=== PATIENT | male | born 1945 | race African-American/Black ===

== ENCOUNTER 2018-05-01 22:12 | Emergency (ER) | payer MEDICARE, OTHER ==
[2018-05-02] MEDS ORDERED: IOHEXOL 240 MG/ML 50ML VIAL. IJ
== END 2018-05-02 02:51 | disposition home or self-care (01) ==
LOC: ER 22:12
DX: K94.23 Gastrostomy malfunction (principal); Z88.8 Allergy status to other drugs, medicaments and biological substances
CPT/HCPCS: 49450; 74018; 99284

== ENCOUNTER 2018-11-29 10:45 | Inpatient (IN) | payer MEDICARE, OTHER ==
[2018-11-29] VITALS (7 sets, daily range): BP systolic 139–194; BP diastolic 38–114
[~2018-11-29] VITALS: Ht 172.7 cm; Wt 79.1 kg
[~2018-11-29 10:45] MED LIST: ACET500L17 PO; ACIDOPHILUS PROB1 MG PO; ALBU1.25 NEB; ATEN25TA PO; BIOTENE ORALBAL42 GM MM; CARB1DRO OP; CHOL100016 PO; EMOLLIENT CREA454 GM TP; GABA250S6 PO; HC/M25OI TP; LAMO200T2 PO; LEVE100S8 PO; LOPE1LIQ7 PO; LORA0.5T PO; LORA10TA68 PO; MAG355OR12 PO; MAGN30OR PO; NAPH1POW2 PO; NITR1PAT73 TD; NYST15CR TP; NYST1POW5 MC; PANT40TA77 PO; PRAV10TA2 PO; SIME100L MC
--- NOTE | 2018-11-29 14:00 | NUR ---
PATIENT ARRIVED ON THE UNIT PER DONY, ASSISTED TON BED PER 3 PERSON ASSIST, PATIENT NON VERBAL BUT RESPONDS TO TACTILE STIMULI, COMFORT MEASURES GIVEN, HOB OF BED ELEVATED ADMISSION ASSESSMENT COMPLETED, WILL REVIEW ORDERS.
--- NOTE | 2018-11-29 14:08 | PDOC2 ---
GI CONSULT Reason For Consult: PEG tube placement HPI: HPI: 73 y/o male w/ is non-verbal w/ h/o stroke. Per notes, from [facility] deferred to [facility]. ER documentation indicates PEG tube (note says 18Fr) was dislodged around 10:00 p.m. Apparently no PEG tubes available at [facility] so sent here. Can't see that any labs/imaging done. Records indicate h/o "esophagitis and gastritis." Can also see PEG replaced ( for old/broken tube) in our ER in 04/2018. Med list includes pantoprazole. PMH: PMH: per chart - HTN, HLD, COPD, CVA, epilepsy, GERD, OA, chronic pain, rout, RA, allergic rhinitis, CKD, UTI, BPH, DM, osteoporosis DM, seborrheic dermatitis PEG placement FH: Family History: No pertinent hx Social History: ALCOHOL: none Drugs: None ROS: Unable to obtain. Vitals: Vitals: Please see EMR. Labs: Labs: - Allergies: Coded Allergies: ketorolac (Verified Allergy, Intermediate, 08/14/16) lisinopril (Verified Allergy, Intermediate, 08/14/16) meperidine (Verified Allergy, Intermediate, 08/14/16) Medications: Please see EMR. Imaging: Imaging: - PE: GEN: NAD, was asleep HEENT: Atraumatic LUNGS: CTAB HEART: RRR ABD: soft, non-tender, quiet bowel sounds, previous PEG site left epigastric region - no drainage SKIN: both feet wrapped, pillow between knees NEURO/PSYCH, EXTREM: flutters eyes open, BUE contractures A/P: A/P: PEG tube dislodgement -- Will review replacement plan w/ Dr. Oliva. JULIAN LEIGH Nov 29, 2018 14:08
[2018-11-29] MEDS ORDERED: IV RINGERS,LACTATED 1000ML 1,000 ML IV SCH (15:05)
--- NOTE | 2018-11-29 15:10 | NUR ---
PATIENT LEAVES THE UNIT FOR PEG TUBE REPLACEMENT PER BED, CONSENTS OBTAINED PER PHONE CONSENT FROM , EMOTIONAL SUPPORT GIVEN.
[2018-11-29] MEDS ORDERED: MORPHINE SULFATE 4 MG/ML VIAL. IV PRN (15:15)
[2018-11-29] MEDS ORDERED: LIDOCAINE 1% PF 2 ML VIAL. ID PRN (15:15)
[2018-11-29] MEDS ORDERED: PROCHLORPERAZINE 10 MG/2 ML VIAL. IV PRN (15:15)
[2018-11-29] MEDS ORDERED: ONDANSETRON PF 4 MG/2 ML VIAL. IV PRN (15:15)
[2018-11-29] MEDS ORDERED: HYDROmorphone 2 MG/ML VIAL IV PRN (15:15)
[2018-11-29] MEDS ORDERED: LIDOCAINE 1% PF 2 ML VIAL. ONE (15:57)
[2018-11-29] MEDS ORDERED: PROPOFOL 20 ML IV ONE (15:57)
--- NOTE | 2018-11-29 16:25 | PDOC4 ---
PROCEDURE Procedure EGD/replace g-tube Indication: dislodged g-tube Meds: per anesthesia Findings: E--Normal G--large HH, old stoma noted in body. D--Normal bulb. --New tube placed in old stoma uneventfully. Sarah. well. IMP: successful g-tube replacement Hiatal hernia. REC: OK to start feedings immediately. Abdominal binder. Thanks. MALLIKA BELL MD Nov 29, 2018 16:25
[2018-11-29] MEDS ORDERED: INSULIN LISPRO 300 UNITS/3 ML INSULN.PEN. SQ SCH (18:00)
[2018-11-29] MEDS ORDERED: DEXTROSE 50% 25 GM / 50ML DISP.SYRIN. IV PRN (18:00)
[2018-11-29] MEDS ORDERED: BISACODYL 10 MG SUPP.RECT. PR PRN (18:15)
[2018-11-29] MEDS ORDERED: DOCUSATE 100 MG/10 ML SOLUTION. PEG PRN (18:15)
[2018-11-29] MEDS ORDERED: ALBUTEROL SULFATE 2.5 MG/3 ML NEBU. NEB PRN (18:15)
[2018-11-29] MEDS ORDERED: GABAPENTIN 250 MG/5 ML ORAL SOLUTION. PEG SCH (21:00)
[2018-11-29] MEDS ORDERED: ONDA4TAB7 PO (21:02)
[2018-11-29] MEDS ORDERED: LEVE100S8 PEG (21:02)
[2018-11-29] MEDS ORDERED: SUCR1ORA5 PO (21:02)
[2018-11-29] MEDS ORDERED: ATOR10TA60 PO (21:02)
[2018-11-29] MEDS ORDERED: DOCU50LI12 PO (21:02)
[2018-11-29] MEDS ORDERED: POLY17PO29 PO (21:02)
[2018-11-29] MEDS ORDERED: HYDR-2869 PO (21:02)
[2018-11-29] MEDS ORDERED: LORazepam 0.5 MG TABLET PO PRN (22:00)
[2018-11-29] MEDS ORDERED: LOPERAMIDE 2 MG CAPSULE PO PRN (22:15)
[2018-11-29] MEDS ORDERED: ACETAMINOPHEN 650 MG/20.3 ML SOLUTION. PEG PRN (22:15)
[2018-11-29] MEDS ORDERED: MAG HYDROX/ALUMINUM HYD/SIMETH 30 ML ORAL.SUSP PO PRN (22:15)
[2018-11-29] MEDS ORDERED: LOPERAMIDE 2 MG/10 ML ORAL SOLUTION. PO PRN (22:17)
[2018-11-29] MEDS ORDERED: ONDANSETRON ODT 4 MG TAB.RAPDIS. PO PRN (22:30)
[2018-11-29] MEDS ORDERED: SIMETHICONE DROPS 40 MG/0.6 ML ORAL SUSPENSION. PEG PRN (22:30)
[2018-11-29] MEDS: ATORVASTATIN CALCIUM 10 MG TABLET. PO SCH (22:59)
[2018-11-29] MEDS: lamoTRIgine 100 MG TABLET. PO SCH (22:59)
[2018-11-29] MEDS: IV DEXTROSE 5 %-0.45 % NACL 1,000 ML IV SCH (23:42)
[2018-11-29] MEDS: INSULIN LISPRO 300 UNITS/3 ML INSULN.PEN. SQ SCH (23:53)
[2018-11-30 03:35] VITALS: BP 140/52
--- NOTE | 2018-11-30 04:49 | NUR ---
NURSING NOTE Pt noted to have a small amount of bright red blood in his BM.
[2018-11-30] MEDS: INSULIN LISPRO 300 UNITS/3 ML INSULN.PEN. SQ SCH ×4 (06:00→23:47)
[2018-11-30 07:33] VITALS: BP 160/65
[2018-11-30] MEDS ORDERED: POLYETHYLENE GLYCOL 3350 17 GM PACKET. PO PRN (09:00)
[2018-11-30] MEDS ORDERED: LORATADINE PO SCH (09:00)
[2018-11-30] MEDS ORDERED: CHOLECALCIFEROL 1000 UNIT PO SCH (09:00)
[2018-11-30] MEDS ORDERED: NYSTATIN 100,000 UNIT/GM TOPICAL CREAM 15GM TUBE. TP PRN (09:00)
[2018-11-30] MEDS ORDERED: SUCRALFATE 1 GM PO SCH (09:00)
[2018-11-30] MEDS: NYSTATIN TOPICAL POWDER 15GM BOTTLE. TP SCH ×2 (09:00→21:13)
[2018-11-30] MEDS ORDERED: METOCLOPRAMIDE ORAL SOLN 10 MG/10 ML SOLUTION. PO PRN (09:30)
[2018-11-30] MEDS: IV DEXTROSE 5 %-0.45 % NACL 1,000 ML IV SCH ×2 (10:17→20:40)
[2018-11-30] MEDS: GABAPENTIN 250 MG/5 ML ORAL SOLUTION. PO SCH ×3 (10:18→21:12)
[2018-11-30] MEDS: DOCUSATE 100 MG/10 ML SOLUTION. PO SCH (10:20)
[2018-11-30] MEDS: SUCRALFATE 1 GM/10 ML ORAL.SUSP. PEG SCH ×2 (10:23→17:04)
[2018-11-30] MEDS: LACTOBACILLUS RHAMNOSUS GG 1 CAPSULE. PO SCH ×2 (10:24→21:11)
[2018-11-30] MEDS: lamoTRIgine 100 MG TABLET. PO SCH ×2 (10:24→21:11)
[2018-11-30] MEDS: POTASSIUM & SODIUM PHOSPHATES PACKET. PO SCH ×2 (10:25→21:11)
[2018-11-30] MEDS: LANSOPRAZOLE 30 MG TAB.RAP.DR FT SCH ×2 (10:25→17:04)
[2018-11-30] MEDS: CHOLECALCIFEROL (VITAMIN D3) 1,000 UNIT TABLET PEG SCH (10:26)
[2018-11-30] MEDS: POLYVINYL ALCOHOL 1.4% OPHTH SOLUTION 15ML BOTTLE. OU SCH ×4 (10:26→21:13)
[2018-11-30] MEDS: SALIVA STIMULANT AGENT 44ML SPRAY BOTTLE. PO SCH ×4 (10:27→21:13)
[2018-11-30] MEDS: CETIRIZINE HCL 10 MG TABLET. PEG SCH (10:31)
--- NOTE | 2018-11-30 10:53 | HP ---
ADMIT DATE: 11/29/2018 HISTORY OF PRESENT ILLNESS: The patient is a 73-year-old -[place] male patient, a resident at [facility] [place], who apparently was seen with accidental dislodgement of his gastrostomy tube and he was initially accepted at the [facility] and then they transferred him. They refused to take him and therefore he was seen at the Emergency Room of [facility]. I spoke with ER physician and as we do not have any gastrostomy tubes or side gluer or surgeons, a decision was made to transfer him to [facility] to consult the surgical team to replace his gastrostomy tube. The patient is nonverbal and does not give any useful information. PAST MEDICAL HISTORY: Significant for hypertension, rheumatoid arthritis, chronic kidney disease, vascular dementia with behavioral disturbances, cerebrovascular accident, benign prostatic hypertrophy, chronic constipation and gastroesophageal reflux disease. The patient incontinent of bowel and bladder. He has also a history of acute gastritis. PAST SURGICAL HISTORY: Significant for gastrostomy tube placement. ALLERGIES: He apparently is allergic to LISINOPRIL, DEMEROL, and TORADOL. MEDICATIONS: He is currently on following medications: He is on loratadine 10 mg daily, albuterol sulfate 1.25 mg 3 mL by nebulizer every 6 hours, atorvastatin calcium 10 mg at bedtime. He is on hydralazine 50 mg 3 times a day; acetaminophen 500 mg every 6 hours; gabapentin 150 mg per 5 mL solution, he takes 12 mL 3 times a day; lamotrigine 200 mg twice a day; levetiracetam 200 mg per feeding tube twice a day; lorazepam 0.5 mg every 6 hours as needed for seizure. He is on sodium phosphate packet per feeding tube twice a day, carboxymethylcellulose for lubricant eyedrops 1 drop to both eyes 4 times a day. He is on Maalox 30 mL p.r.n. daily. He is on loperamide 1 mg in 7.5 mL liquid, take 2 mL every 6 hours as needed; simethicone 100 mg every 6 hours; docusate sodium 50 mg per 5 mL, he takes 20 mL daily; polyethylene glycol 17 grams daily as needed for constipation; ondansetron 4 mg for Zofran per feeding tube twice a day as needed. He is on sucralfate 1 gram in 10 mL oral suspension, he takes one twice a day; Protonix 40 mg daily, nystatin cream applied topically twice a day; nystatin powder also applied topically twice a day for skin folds; cholecalciferol, vitamin D3 1000 international units once a day; lactobacillus acidophilus 1 daily. He is also on Biotene Oral Balance Gel 42 grams 4 times a day. FAMILY HISTORY: Unobtainable. SOCIAL HISTORY: He is a resident at [facility] [place]. He does not smoke, drink alcohol or use any recreational drugs. REVIEW OF SYSTEMS: Unobtainable. PHYSICAL EXAMINATION: GENERAL: On arrival, the patient looked well and was clearly in no apparent respiratory distress, pale, but no jaundice, cyanosis, or thyromegaly. No jugular venous distension. No lower limb edema. VITAL SIGNS: His heart rate was 49, blood pressure was 172/114, temperature was 98, respiratory rate was 17 and oxygen saturation was 96% on room air. HEAD, EYES, EARS, NOSE AND THROAT: Showed normocephalic, atraumatic. NECK: Supple. HEART: Showed normal first and second heart sounds. No gallop, rub or murmur. CHEST: Clear to auscultation. No crepitation or rhonchi. ABDOMEN: Distended, soft, nontender. No guarding or rigidity. No organomegaly. All hernial orifices intact. Bowel sounds normal. NEUROLOGIC: He does open his eyes spontaneously, but does not track or follow command. He has flexion and contraction of both upper and lower extremities. ASSESSMENT AND PLAN: He apparently has no lab work done and was transferred to consult the Gastroenterology team. We did consult Dr. Oliva to replace his gastrostomy tube. Once we have the okay to use it, we will start him back on his tube feeding as well as all his medications. Once he is stabilized and tolerates his tube feeds, we will be able to discharge him back to [facility]. GABRIEL YOST MD DR: JOAQUÍN/abdoulaye JOB#: [id number] / [id number]
[2018-11-30 11:01] LABS: HEMATOCRIT 45.1 % (39.0-53.0); HEMOGLOBIN 15.1 g/dL (13.0-17.5); RED BLOOD COUNT 4.94 x10^6/uL (4.30-5.70); RED CELL DISTRIBUTION WIDTH 16.6 % (11.5-14.5)
[2018-11-30] MEDS: ALBUTEROL SULFATE 2.5 MG/3 ML NEBU. NEB SCH ×4 (11:23→20:30)
[2018-11-30 11:29] VITALS: BP 138/82
--- NOTE | 2018-11-30 12:09 | NUR ---
Patient's spouse, Ling, came to the desk at 1130 to notify me that the patient was having a seizure. She and her daughter had been present in the room with the patient for approximately 10 minutes prior to the beginning of the seizure. The seizure lasted for approximately 3 minutes. Ling informed me that, if the patient goes even one day without his "seizure medicine" (Keppra), he will have a seizure. The patient did not receive Keppra yesterday because he is NPO and nursing did not have clearance yet from GI to use the new PEG tube that was placed yesterday. I did administer his Keppra this morning, but Ling said that Ativan tends to really help him once he has started having a seizure. I notified Dr. Soliman of the seizure during the time the patient was seizing and he gave me an order for IV Ativan, which I promptly administered. Patient is resting at this time. and daughter remain at bedside.
[2018-11-30 13:41] LABS: ALBUMIN 2.4 g/dL (3.4-5.0); ALBUMIN/GLOBULIN RATIO 0.5 (1.0-1.7); CALCIUM 8.8 mg/dL (8.5-10.1); GFR 88.9; POTASSIUM 3.6 mmol/L (3.5-5.1); TOTAL BILIRUBIN 0.6 mg/dL (0.2-1.0); TOTAL PROTEIN 7.4 g/dL (6.4-8.2)
[2018-11-30 14:55] VITALS: BP 114/54
[2018-11-30 19:00] VITALS: BP 164/92
[2018-11-30] MEDS: ATORVASTATIN CALCIUM 10 MG TABLET. PO SCH (21:11)
[2018-11-30 23:00] VITALS: BP 122/65
[2018-12-01 03:00] VITALS: BP 124/66
[2018-12-01] MEDS: INSULIN LISPRO 300 UNITS/3 ML INSULN.PEN. SQ SCH ×4 (05:46→23:34)
[2018-12-01 07:00] VITALS: BP 120/49
[2018-12-01] MEDS: ALBUTEROL SULFATE 2.5 MG/3 ML NEBU. NEB SCH ×4 (07:32→20:35)
[2018-12-01] MEDS: IV DEXTROSE 5 %-0.45 % NACL 1,000 ML IV SCH ×2 (08:33→23:20)
[2018-12-01] MEDS: CHOLECALCIFEROL (VITAMIN D3) 1,000 UNIT TABLET PEG SCH (08:36)
[2018-12-01] MEDS: POTASSIUM & SODIUM PHOSPHATES PACKET. PO SCH ×2 (08:36→20:19)
[2018-12-01] MEDS: CETIRIZINE HCL 10 MG TABLET. PEG SCH (08:36)
[2018-12-01] MEDS: LANSOPRAZOLE 30 MG TAB.RAP.DR FT SCH ×2 (08:36→15:35)
[2018-12-01] MEDS: LACTOBACILLUS RHAMNOSUS GG 1 CAPSULE. PO SCH ×2 (08:37→20:19)
[2018-12-01] MEDS: SUCRALFATE 1 GM/10 ML ORAL.SUSP. PEG SCH ×2 (08:37→15:34)
[2018-12-01] MEDS: lamoTRIgine 100 MG TABLET. PO SCH ×2 (08:37→20:19)
[2018-12-01] MEDS: DOCUSATE 100 MG/10 ML SOLUTION. PO SCH (08:37)
[2018-12-01] MEDS: GABAPENTIN 250 MG/5 ML ORAL SOLUTION. PO SCH ×3 (08:38→20:21)
[2018-12-01] MEDS: NYSTATIN TOPICAL POWDER 15GM BOTTLE. TP SCH ×2 (08:39→20:20)
[2018-12-01] MEDS: SALIVA STIMULANT AGENT 44ML SPRAY BOTTLE. PO SCH ×4 (08:39→20:20)
[2018-12-01] MEDS: POLYVINYL ALCOHOL 1.4% OPHTH SOLUTION 15ML BOTTLE. OU SCH ×4 (09:00→20:20)
--- NOTE | 2018-12-01 10:17 | PN ---
DATE: 12/01/2018 SUBJECTIVE: The patient is resting, slightly propped up in bed, in no apparent distress. He has had his gastrostomy tube placed successfully and we did start him on his tube feeding, tolerating it well. He continued to have some gastric residual. I did start him on Reglan 5 mg every 6 hours. He did found to have a seizure yesterday, for which he received Ativan, as he was without his antiepileptic medication for more than 24. However, he has not had any more seizures since then. PHYSICAL EXAMINATION: GENERAL: When I saw him this morning, he was resting slightly propped up in bed, in no apparent respiratory distress. He was somewhat pale, but not jaundiced or cyanosed from thyromegaly. No jugular venous distention. No lower limb edema. VITAL SIGNS: His heart rate was 73, blood pressure was 120/49, temperature was 99.4, respiratory rate was 22 and oxygen saturation was 96% on room air. HEENT: Examination of the head, eyes, ears, nose and throat showed normocephalic, atraumatic. NECK: Supple. HEART: Showed normal first and second heart sounds, with no gallop, rub or murmur. CHEST: Clear to auscultation. No crepitation or rhonchi. ABDOMEN: Distended, soft with a gastrostomy tube in place. NEUROLOGIC: He was encephalopathic. He did open his eyes, but did not track or follow commands. He had fixed flexion contraction of all 4 limbs. His intake over the last 24 hours was 535; no output was recorded. LABORATORY DATA: As of yesterday, his white cell count was 5000, hemoglobin 15, hematocrit 45, MCV 91 and platelet count of 182,000. Serum sodium was 138, potassium 3.6, chloride 103, bicarbonate 25, anion gap of 10, BUN 17, creatinine 1, estimated GFR was 88 mL per minute, his glucose was 135 and calcium was 8.8. Total bilirubin, AST, ALT and alkaline phosphatase were normal. Total protein was 7.4, albumin 2.4. ASSESSMENT: 1. Dislodged gastrostomy tube, replaced successfully by Dr. Oliva. The patient has multiple medical problems includin. Hypertension. 2. Rheumatoid arthritis. 3. Chronic kidney disease. 4. Vascular dementia with behavioral disturbances. 5. Cerebrovascular accident with fixed flexion contraction of all 4 limbs. 6. Benign prostatic hypertrophy. 7. Chronic constipation. 8. Gastroesophageal reflux disease. The patient is incontinent of bowel and bladder. PLAN: My plan is to advance his tube feeds to the goal. Continue with all his medications. If the [facility] is able to take him back today, we will send him. Otherwise, we will arrange for him to be discharged tomorrow. GABRIEL YOST MD DR: JAOQUÍN/abdoulaye JOB#: [id number] / [id number]
[2018-12-01 11:00] VITALS: BP 134/48
[2018-12-01 15:14] VITALS: BP 144/69
[2018-12-01 19:00] VITALS: BP 143/66
[2018-12-01] MEDS: ATORVASTATIN CALCIUM 10 MG TABLET. PO SCH (20:19)
[2018-12-01 23:00] VITALS: BP 145/80
[2018-12-02 03:00] VITALS: BP 140/79
[2018-12-02] MEDS: INSULIN LISPRO 300 UNITS/3 ML INSULN.PEN. SQ SCH (06:00)
[2018-12-02 07:00] VITALS: BP 156/69
--- NOTE | 2018-12-02 07:34 | DISCH ---
DISCHARGE DISCHARGE INFORMATION: CONDITION ON DISCHARGE: Stable CODE STATUS: Code Status: Full MCFP: SNF STAY <30 DAYS: No POST DISCHARGE ORDERS: ACTIVITY ORDERS: Resume previous activity DIET AFTER DISCHARGE: NPO TREATMENT/EQUIPMENT ORDERS: Physical Therapy For: Evalulation/Treatment Occupational Therapy For: Evaluation/Treatment DISCHARGE MEDICATIONS: Home Meds Reported Medications Ondansetron Hcl (ZOFRAN) 4 Mg Tablet, 4 MG PO BID PRN for NAUSEA/VOMITING, TAB 11/29/18 Polyethylene Glycol 3350 (MIRALAX) 17 Gm Powd.pack, 1 PKT PO PRN DAILY PRN for CONSTIPATION, PKT 11/29/18 Atorvastatin Calcium (ATORVASTATIN CALCIUM) 10 Mg Tablet, 10 MG PO HS for FOR CHOLESTEROL, #30 TAB 0 Refills 11/29/18 Levetiracetam (KEPPRA) 100 Mg/1 Ml Solution, 200 MG PEG BID for seizures, ML 11/29/18 Hydralazine Hcl (HYDRALAZINE HCL) 50 Mg Tablet, 1 TAB PO TID for htn, #270 TAB 3 Refills 11/29/18 Docusate Sodium (DOCU LIQUID) 50 Mg/5 Ml Liquid, 20 ML PO DAILY for constipation , LIQUID 11/29/18 Sucralfate (CARAFATE) 1 Gm/10 Ml Oral.susp, 1 GM PO BID for reflux, MISC 11/29/18 Naph,Mb-Db/K Ph,Mbdb (PHOS-NAK PACKET) 1 Each Powd.pack, 2 EACH PO BID 08/14/16 Acetaminophen (ACETAMINOPHEN) 500 Mg/5 Ml Liquid, 500 MG PO PRN Q6HRS PRN for PAIN, LIQUID 08/14/16 Simethicone (SIMETHICONE) 100 Ml Liquid, 100 ML MC PRN Q6HRS PRN for INDIGESTION , LIQUID 08/14/16 Pantoprazole Sodium (PANTOPRAZOLE SODIUM) 40 Mg Tablet.dr, 40 MG PO DAILY, TAB 08/14/16 Nystatin (NYSTATIN) 1 Each Powder.ea., 1 EACH MC BID 08/14/16 Nystatin (NYSTATIN) 15 Gm Cream..g., 1 CLAUDIA TP PRN BID, #30 GM 08/14/16 Magnesium Hydroxide/Al Hydrox (MAG-AL LIQUID) 30 Ml Oral.susp, 30 ML PO PRN DAILY PRN for HEARTBURN / GAS 08/14/16 Lorazepam (LORAZEPAM) 0.5 Mg Tablet, 0.5 MG PO PRN Q6HRS PRN for SEIZURES, TAB 08/14/16 Lamotrigine (LAMOTRIGINE) 200 Mg Tablet, 200 MG PO BID, TAB 08/14/16 Lactobacillus Acidophilus (ACIDOPHILUS PROBIOTIC) 1 Mg Tablet, 1 MG PO DAILY 08/14/16 Loperamide Hcl (IMODIUM A-D) 1 Mg/7.5 Ml Liquid, 2 MG PO PRN Q6HRS PRN for DIARRHEA, LIQUID 08/14/16 Gabapentin (GABAPENTIN ORAL SOLUTION) 250 Mg/5 Ml Solution, 12 ML PO TID for epilepsy, ML 08/14/16 Loratadine (CLARITIN) 10 Mg Tablet, 1 TAB PO DAILY, #30 TAB 5 Refills 08/14/16 Cholecalciferol (Vitamin D3) (VITAMIN D3) 1,000 Unit Tab.chew, 1000 UNIT PO DAILY for supplement, TAB.CHEW 08/14/16 Carboxymethylcell/Glycerin/Pf (Lubricant 0.5-0.9% Eye Drops) 1 Each Droperette, 1 EACH OP [id number] 08/14/16 Lactoperoxi/Gluc Oxid/Pot Thio (BIOTENE ORALBALANCE GEL) 42 Gm Gel..gram., 42 GM MM QID 08/14/16 Albuterol Sulfate (ALBUTEROL SULFATE NEB SOLN) 1.25 Mg/3 Ml Vial.neb, 1 VIAL NEB Q6HRS, #150 ML 08/14/16 Discontinued Reported Medications Pravastatin Sodium (PRAVASTATIN SODIUM) 10 Mg Tablet, 10 MG PO DAILY, TAB 08/14/16 Nitroglycerin (NITRO-DUR 0.4mg/hr) 1 Each Patch.td24, 1 EACH TD PRN DAILY, PATCH 08/14/16 Mag Hydrox/Al Hydrox/Simeth (MAALOX MAXIMUM STRENGTH SUSP) 355 Ml Oral.susp, 355 ML PO 08/14/16 Atenolol (ATENOLOL) 25 Mg Tablet, 12.5 MG PO [id number], TAB 08/14/16 GABRIEL YOST MD Dec 02, 2018 07:34
[2018-12-02] MEDS ORDERED: METO10TA81 PO (07:36)
--- NOTE | 2018-12-02 07:47 | DISCH ---
DISCHARGE DISCHARGE INFORMATION: CONDITION ON DISCHARGE: Stable CODE STATUS: Code Status: Full ALF: SNF STAY <30 DAYS: No POST DISCHARGE ORDERS: ACTIVITY ORDERS: Resume previous activity DIET AFTER DISCHARGE: NPO TREATMENT/EQUIPMENT ORDERS: Physical Therapy For: Evalulation/Treatment Occupational Therapy For: Evaluation/Treatment DISCHARGE MEDICATIONS: Home Meds Active Scripts Metoclopramide Hcl (REGLAN) 10 Mg Tablet, 5 MG PO QIDACHS for gastroparesis for 30 Days, #60 TAB 0 Refills Prov:GABRIEL YOST MD 12/02/18 Reported Medications Ondansetron Hcl (ZOFRAN) 4 Mg Tablet, 4 MG PO BID PRN for NAUSEA/VOMITING, TAB 11/29/18 Polyethylene Glycol 3350 (MIRALAX) 17 Gm Powd.pack, 1 PKT PO PRN DAILY PRN for CONSTIPATION, PKT 11/29/18 Atorvastatin Calcium (ATORVASTATIN CALCIUM) 10 Mg Tablet, 10 MG PO HS for FOR CHOLESTEROL, #30 TAB 0 Refills 11/29/18 Levetiracetam (KEPPRA) 100 Mg/1 Ml Solution, 200 MG PEG BID for seizures, ML 11/29/18 Hydralazine Hcl (HYDRALAZINE HCL) 50 Mg Tablet, 1 TAB PO TID for htn, #270 TAB 3 Refills 11/29/18 Docusate Sodium (DOCU LIQUID) 50 Mg/5 Ml Liquid, 20 ML PO DAILY for constipation , LIQUID 11/29/18 Sucralfate (CARAFATE) 1 Gm/10 Ml Oral.susp, 1 GM PO BID for reflux, MISC 11/29/18 Naph,Mb-Db/K Ph,Mbdb (PHOS-NAK PACKET) 1 Each Powd.pack, 2 EACH PO BID 08/14/16 Acetaminophen (ACETAMINOPHEN) 500 Mg/5 Ml Liquid, 500 MG PO PRN Q6HRS PRN for PAIN, LIQUID 08/14/16 Simethicone (SIMETHICONE) 100 Ml Liquid, 100 ML MC PRN Q6HRS PRN for INDIGESTION , LIQUID 08/14/16 Pantoprazole Sodium (PANTOPRAZOLE SODIUM) 40 Mg Tablet.dr, 40 MG PO DAILY, TAB 08/14/16 Nystatin (NYSTATIN) 1 Each Powder.ea., 1 EACH MC BID 08/14/16 Nystatin (NYSTATIN) 15 Gm Cream..g., 1 CLAUDIA TP PRN BID, #30 GM 08/14/16 Magnesium Hydroxide/Al Hydrox (MAG-AL LIQUID) 30 Ml Oral.susp, 30 ML PO PRN DAILY PRN for HEARTBURN / GAS 08/14/16 Lorazepam (LORAZEPAM) 0.5 Mg Tablet, 0.5 MG PO PRN Q6HRS PRN for SEIZURES, TAB 08/14/16 Lamotrigine (LAMOTRIGINE) 200 Mg Tablet, 200 MG PO BID, TAB 08/14/16 Lactobacillus Acidophilus (ACIDOPHILUS PROBIOTIC) 1 Mg Tablet, 1 MG PO DAILY 08/14/16 Loperamide Hcl (IMODIUM A-D) 1 Mg/7.5 Ml Liquid, 2 MG PO PRN Q6HRS PRN for DIARRHEA, LIQUID 08/14/16 Gabapentin (GABAPENTIN ORAL SOLUTION) 250 Mg/5 Ml Solution, 12 ML PO TID for epilepsy, ML 08/14/16 Loratadine (CLARITIN) 10 Mg Tablet, 1 TAB PO DAILY, #30 TAB 5 Refills 08/14/16 Cholecalciferol (Vitamin D3) (VITAMIN D3) 1,000 Unit Tab.chew, 1000 UNIT PO DAILY for supplement, TAB.CHEW 08/14/16 Carboxymethylcell/Glycerin/Pf (Lubricant 0.5-0.9% Eye Drops) 1 Each Droperette, 1 EACH OP [id number] 08/14/16 Lactoperoxi/Gluc Oxid/Pot Thio (BIOTENE ORALBALANCE GEL) 42 Gm Gel..gram., 42 GM MM QID 08/14/16 Albuterol Sulfate (ALBUTEROL SULFATE NEB SOLN) 1.25 Mg/3 Ml Vial.neb, 1 VIAL NEB Q6HRS, #150 ML 08/14/16 Discontinued Reported Medications Pravastatin Sodium (PRAVASTATIN SODIUM) 10 Mg Tablet, 10 MG PO DAILY, TAB 08/14/16 Nitroglycerin (NITRO-DUR 0.4mg/hr) 1 Each Patch.td24, 1 EACH TD PRN DAILY, PATCH 08/14/16 Mag Hydrox/Al Hydrox/Simeth (MAALOX MAXIMUM STRENGTH SUSP) 355 Ml Oral.susp, 355 ML PO 08/14/16 Atenolol (ATENOLOL) 25 Mg Tablet, 12.5 MG PO [id number], TAB 08/14/16 GABRIEL YOST MD Dec 02, 2018 07:47
--- NOTE | 2018-12-02 08:41 | DS ---
DATE OF DISCHARGE: 12/02/2018 HOSPITAL COURSE: The patient is a 73-year-old [place] patient[place] [facility] [place] at the [facility] Room of [facility] with accidental dislodgement of his gastrostomy tube and was transferred to [facility] where he was seen by Dr. Oliva and his gastrostomy was replaced successfully. We did start him on his tube feeds as well as all his medication and has been tolerating his tube feeds without difficulty, although he does have occasional high gastric residual. He had 1 episode of a seizure after he was without his antiepileptic medication for more than 24 hours; however, he has not had any over the last 24 hours. PHYSICAL EXAMINATION: GENERAL: When I saw him today, he looked well and was clearly in no apparent respiratory distress, pale, but no jaundice, cyanosis, or thyromegaly. No jugular venous distension. No lower limb edema. VITAL SIGNS: His heart rate was 60, blood pressure was 140/79, temperature was 99.3, respiratory rate was 20, and oxygen saturation was 94% on room air. HEAD, EYES, EARS, NOSE AND THROAT: Showed normocephalic, atraumatic. NECK: Supple. HEART: Normal first and second heart sounds. No gallop, rub or murmur. CHEST: Clear to auscultation. No crepitation or rhonchi. ABDOMEN: Distended, soft, nontender with a gastrostomy tube in place. NEUROLOGIC: He does open his eyes, but does not track, does not follow command. He is encephalopathic with fixed flexion contraction of all 4 limbs. His intake over the last 24 hours was 1275, no output was recorded. LABORATORY DATA: Showed a serum sodium 138, potassium 3.6, chloride 103, bicarbonate 25, anion gap of 10, BUN 17, creatinine 1, estimated GFR was 88 mL per minute, glucose 135, calcium was 8.8. Total bilirubin, AST, ALT, alkaline phosphatase were normal. Total protein was 7.4, albumin 2.4. His white cell count was 5000, hemoglobin 15, hematocrit 45, MCV 91, and platelet count 282,000. DISCHARGE MEDICATIONS: He will be [place] [facility]; to continue on Tylenol 500 mg every 6 hours; albuterol sulfate 1.5 mg in 3 mL by nebulizer every 6 hours; atorvastatin calcium 10 mg at bedtime, lubricant eyedrops 1 drop 4 times a day; cholecalciferol for vitamin D3 1000 International unit once a day; docusate sodium 200 mg daily; gabapentin 250 mg per 5 mL, he takes 12 mL 3 times a day; hydralazine 50 mg 3 times a day; lactobacillus acidophilus 1 once daily. He is on Keppra 200 mg twice a day, lamotrigine 200 mg twice a day, loperamide 2 mg every 4 hours, lorazepam 0.5 mg every 6 hours, milk of magnesia 30 mL p.o. daily p.r.n. for constipation, nystatin cream applied topically to skin folds twice a day, nystatin powder to skin folds twice a day, ondansetron for Zofran 4 mg twice a day, Protonix 40 mg once a day, polyethylene glycol 17 grams daily, simethicone 100 mL q. 6 hourly and sucralfate 1 gram twice a day. FINAL DISCHARGE DIAGNOSES: 1. Accidental dislodgement of a gastrostomy tube, placed successfully by Dr. Oliva. 2. The patient has multiple other medical problems including: a. Hypertension. b. Rheumatoid arthritis. c. Chronic kidney disease. d. Vascular dementia with behavioral disturbances. e. Cerebrovascular accident with flexion contraction of all 4 limbs. f. Benign prostatic hypertrophy. g. Chronic constipation. h. Gastroesophageal reflux disease. i. The patient is incontinent of both bowel and bladder. GABRIEL YOST MD DR: JOAQUÍN/abdoulaye JOB#: [id number] / [id number]
[2018-12-02] MEDS: DOCUSATE 100 MG/10 ML SOLUTION. PO SCH (09:29)
[2018-12-02] MEDS: SUCRALFATE 1 GM/10 ML ORAL.SUSP. PEG SCH (09:29)
[2018-12-02] MEDS: CETIRIZINE HCL 10 MG TABLET. PEG SCH (09:30)
[2018-12-02] MEDS: LACTOBACILLUS RHAMNOSUS GG 1 CAPSULE. PO SCH (09:30)
[2018-12-02] MEDS: lamoTRIgine 100 MG TABLET. PO SCH (09:30)
[2018-12-02] MEDS: CHOLECALCIFEROL (VITAMIN D3) 1,000 UNIT TABLET PEG SCH (09:31)
[2018-12-02] MEDS: POTASSIUM & SODIUM PHOSPHATES PACKET. PO SCH (09:33)
[2018-12-02] MEDS: NYSTATIN TOPICAL POWDER 15GM BOTTLE. TP SCH (09:33)
[2018-12-02] MEDS: LANSOPRAZOLE 30 MG TAB.RAP.DR FT SCH (09:34)
--- NOTE | 2018-12-02 10:49 | NUR ---
SW following for discharge planning. DC orders in for pt to return to [facility]. SW faxed discharge paperwork, pt will be transported by the facility at 1145. RN and family notified. No further SW needs.
[2018-12-02 11:06] VITALS: BP 145/75
[2018-12-02] MEDS: ALBUTEROL SULFATE 2.5 MG/3 ML NEBU. NEB SCH (11:14)
--- NOTE | 2018-12-02 11:55 | NUR ---
TRANSPORTATION [place] [facility] [place] PATIENT ASSISTED ONTO STRETCHER PER 3-4 PERSON ASSIST, PERSONAL BELONGINGS SENT WITH PATIENT AT TIME OF DISCHARGE, EMOTIONAL SUPPORT GIVEN.
--- NOTE | 2018-12-02 12:00 | NUR ---
REPORT CALLED TO KASSI AT [facility] [place], QUESTIONS AND CONCERNS ANSWERED, CALL PLACED TO PATIENTS' DANYELLE, INFORMED OF PATIENT BEING DISCHARGED, QUESTIONS AND CONCERNS ANSWERED.
[2019-05-19] MEDS ORDERED: POTA20LI2 PEG (21:02)
== END 2018-12-02 12:00 | disposition home or self-care (01) | DRG 393 ==
LOC: EDBD → 5 SOUTH 10:45
PROVIDERS: ADMIT Internal Medicine; ATTEND Internal Medicine
PROC: 0DJ08ZZ Inspection of Upper Intestinal Tract, Via Natural or Artificial Opening Endoscopic (ICD-10-PCS; 2018-11-29)
PROC: 0D20XUZ Change Feeding Device in Upper Intestinal Tract, External Approach (ICD-10-PCS; principal; 2018-11-29 15:00)
DX: Z43.1 Encounter for attention to gastrostomy (principal); G82.50 Quadriplegia, unspecified; F01.51 Vascular dementia, unspecified severity, with behavioral disturbance; I12.9 Hypertensive chronic kidney disease with stage 1 through stage 4 chronic kidney disease, or unspecified chronic kidney disease; N18.9 Chronic kidney disease, unspecified; N40.0 Benign prostatic hyperplasia without lower urinary tract symptoms; M06.9 Rheumatoid arthritis, unspecified; K21.9 Gastro-esophageal reflux disease without esophagitis; K59.09 Other constipation; K44.9 Diaphragmatic hernia without obstruction or gangrene; E11.22 Type 2 diabetes mellitus with diabetic chronic kidney disease; E78.5 Hyperlipidemia, unspecified; G40.909 Epilepsy, unspecified, not intractable, without status epilepticus; G89.29 Other chronic pain; J44.9 Chronic obstructive pulmonary disease, unspecified; M81.0 Age-related osteoporosis without current pathological fracture; Z86.73 Personal history of transient ischemic attack (TIA), and cerebral infarction without residual deficits; Z88.8 Allergy status to other drugs, medicaments and biological substances
CPT/HCPCS: 36415; 43246; 80053; 82962; 85027; 94640; 94760; J1815; J2060; J2704; J7613; J8597; G0378

== ENCOUNTER 2019-05-19 17:26 | Inpatient (IN) | payer MEDICARE, OTHER ==
[~2019-05-19] VITALS: Ht 172.7 cm; Wt 80.0 kg
[~2019-05-19 17:26] MED LIST changes: +ATOR10TA60 PO; +DOCU50LI12 PO; +HYDR-2869 PO; +LEVE100S8 PEG; +METO10TA81 PO; +ONDA4TAB7 PO; +POLY17PO29 PO; +SUCR1ORA5 PO
[2019-05-19] MEDS ORDERED: FURO-68 PO (20:57)
[2019-05-19] MEDS ORDERED: LACT1CAP2 PO (20:57)
[2019-05-19] MEDS ORDERED: SPIR50TA PO (20:57)
[2019-05-19] MEDS ORDERED: ATRO2DRO3 OP (20:57)
[2019-05-19] MEDS ORDERED: CARB15DR3 EACHEYE (20:57)
[2019-05-19] MEDS ORDERED: ACET650S PO ×2 (20:57→21:03)
[2019-05-19] MEDS ORDERED: GUAI100L12 PO (20:57)
[2019-05-19] MEDS ORDERED: ATOR10TA PO (20:58)
[2019-05-19] MEDS ORDERED: POTA20LI27 PEG (21:02)
[2019-05-19] MEDS ORDERED: PHEN28OI RC (21:02)
[2019-05-19 21:41] VITALS: BP 214/93
[2019-05-19] MEDS ORDERED: guaiFENesin ORAL 200 MG/10 ML LIQUID. PO PRN (21:45)
[2019-05-19] MEDS ORDERED: LOPERAMIDE 2 MG/15 ML ORAL SUSP. PO PRN (21:45)
[2019-05-19] MEDS ORDERED: ACETAMINOPHEN 650 MG/20.3 ML SOLUTION. PO PRN (21:45)
[2019-05-19] MEDS ORDERED: LORazepam 0.5 MG TABLET PO PRN (21:45)
[2019-05-19] MEDS ORDERED: SIMETHICONE 80 MG TAB.CHEW PO PRN (22:00)
[2019-05-19] MEDS ORDERED: MAG HYDROX/ALUMINUM HYD/SIMETH 30 ML ORAL.SUSP PO PRN (22:00)
[2019-05-19] MEDS ORDERED: ONDANSETRON ODT 4 MG TAB.RAPDIS. PO PRN (22:15)
[2019-05-19] MEDS ORDERED: ANTI-COAG MONITOR BY PHARMACY. MC PRN (22:15)
[2019-05-19] MEDS ORDERED: ATROPINE 1% OPHTH SOLUTION 5ML BOTTLE. OU PRN (22:15)
[2019-05-19] MEDS ORDERED: amLODIPine BESYLATE 10 MG TABLET PO ONE (22:30)
[2019-05-19] MEDS ORDERED: hydrALAZINE 20 MG/ML VIAL. IVP ONE (23:00)
[2019-05-20] VITALS (7 sets, daily range): BP systolic 131–209; BP diastolic 56–92
[2019-05-20] MEDS ORDERED: NON FORMULARY ITEM (Albuterol Sulfate (Albuterol Sulfate Neb Soln) 1 VIAL) NEB SCH
--- NOTE | 2019-05-20 03:45 | NUR ---
During patient's bath, he began convulsing for approximately one minute. He mosqueda been laying on his right side prior to episode. Currently resting in bed, vitals stable. Will continue to monitor. Addendum: 05/20/19 at 0419 by Bairon Tanner RN *marci
[2019-05-20 06:34] LABS: BASO % 0 % (0-3); EOS # 0.1 x10^3/uL (0.0-0.7); EOS % 2 % (0-3); HEMATOCRIT 39.7 % (39.0-53.0); LYMPH # 0.2 x10^3/uL (1.0-4.8); LYMPH % 3 % (24-48); MEAN CORPUSCULAR HEMOGLOBIN 31 pg (25-35); MEAN CORPUSCULAR HGB CONC 33 g/dL (31-37); MEAN CORPUSCULAR VOLUME 94 fL (79-100); MONO # 0.6 x10^3/uL (0.0-1.1); MONO % 9 % (0-9); NEUT # 5.9 x10^3/uL (1.8-7.7); NEUT % 86 % (31-73); PLATELET COUNT 255 x10^3/uL (140-400); RED BLOOD COUNT 4.23 x10^6/uL (4.30-5.70); RED CELL DISTRIBUTION WIDTH 19.1 % (11.5-14.5); WHITE BLOOD COUNT 6.8 x10^3/uL (4.0-11.0)
[2019-05-20 06:51] LABS: CALCIUM 9.4 mg/dL (8.5-10.1); CREATININE 0.9 mg/dL (0.7-1.3); GFR 100.4
[2019-05-20] MEDS: ALBUTEROL SULFATE 2.5 MG/3 ML NEBU. NEB SCH ×4 (07:50→20:13)
[2019-05-20 07:51] LABS: % LYMPHS 2 % (24-48); % MONOS 5 % (0-10); % SEGS 93 % (35-66)
[2019-05-20 07:52] LABS: ANISOCYTOSIS SLIGHT; PLT ESTIMATE ADEQUATE (ADEQUATE)
[2019-05-20 08:07] LABS: CHOLESTEROL/HDL RATIO 2.2
--- NOTE | 2019-05-20 08:49 | PN ---
DATE: SUBJECTIVE: The patient is resting, slightly propped up in bed. He is slightly tachypneic, pale. No jaundice, cyanosis or thyromegaly. No jugular venous distension. No lower limb edema. OBJECTIVE: VITAL SIGNS: His heart rate was 82, blood pressure was 187/86, temperature was 98.5, respiratory rate 24, and oxygen saturation was 96% on 4 liters of oxygen by nasal cannula. HEAD, EYES, EARS, NOSE, AND THROAT: Showed normocephalic, atraumatic. NECK: Supple. HEART: Showed normal first and second heart sounds with no gallop, rub or murmur. CHEST: Showed central trachea, equal bilateral expansion, air entry, vesicular sounds. I could not appreciate any crepitation or rhonchi. ABDOMEN: Distended, soft with a gastrostomy tube in place. No guarding or rigidity. No organomegaly. All hernial orifice intact. Bowel sounds normal. NEUROLOGIC: He is encephalopathic, nonverbal. He has marked fixed flexion contraction of all 4 limbs. LABORATORY DATA: His white cell count was 6800, hemoglobin 13, hematocrit 39, MCV 94, and platelet count 255,000, with normal manual differential. His chemistry showed a serum sodium 136, potassium 4, chloride 96, bicarbonate 32, anion gap of 8, BUN 21, creatinine 0.9. Estimated GFR was 100 mL per minute. His glucose 112 and calcium was 9.4. The second troponin was 0.285. ASSESSMENT AND PLAN: In summary, this is a 73-year-old -Nauruan male patient, a resident at [facility], who presented to the Emergency Room of [facility] with increased shortness of breath, tachypnea, and hypoxia. His oxygen saturation was only 80% on 2 liters of oxygen. Lab work showed that the patient has elevated troponin and elevated D-dimer; however, the patient is difficult vascular access and therefore, the patient was transferred to [facility]. The second troponin was still high at 0.285. The D-dimer was high. We will arrange for him to have a PICC line and CT angio of chest. We have consulted the pull over. We have continued all his medications as well as his tube feed, and he apparently has breakthrough seizures. He is already on Keppra 1800 mg twice a day as well as lamotrigine. We will continue with Lovenox at therapeutic level and once CT angio is done and if it is negative, we will switch it to a prophylactic dose. GABRIEL YOST MD DR: JOAQUÍN/abdoulaye JOB#: [id number] / [id number]
[2019-05-20] MEDS ORDERED: NYSTATIN 100,000 UNIT/GM TOPICAL CREAM 15GM TUBE. TP PRN (09:00)
[2019-05-20] MEDS ORDERED: NON FORMULARY ITEM (Carboxymethylcellulos/Glycerin (Refresh Optive Eye Drops) 1 DROP) EACHEYE SCH (09:00)
[2019-05-20] MEDS ORDERED: NON FORMULARY ITEM (Lactobacillus Acidophilus (Acidophilus) 1 EACH) PO SCH (09:00)
[2019-05-20] MEDS ORDERED: POLYETHYLENE GLYCOL 3350 17 GM PACKET. PO PRN (09:00)
[2019-05-20] MEDS: DOCUSATE 100 MG/10 ML SOLUTION. PO SCH (09:20)
[2019-05-20] MEDS: POTASSIUM & SODIUM PHOSPHATES PACKET. PO SCH ×2 (09:21→20:41)
[2019-05-20] MEDS: METOCLOPRAMIDE 5 MG TABLET. PO SCH ×4 (09:21→20:39)
[2019-05-20] MEDS: LACTOBACILLUS RHAMNOSUS GG 1 CAPSULE. PO SCH ×2 (09:21→20:41)
[2019-05-20] MEDS: FUROSEMIDE 40 MG TABLET. PO SCH (09:21)
[2019-05-20] MEDS: PANTOPRAZOLE 40 MG TABLET.DR. PO SCH (09:21)
[2019-05-20] MEDS: POTASSIUM BICARB 20 MEQ EFFERVESCENT TABLET. PEG SCH (09:22)
[2019-05-20] MEDS: CETIRIZINE HCL 10 MG TABLET. PO SCH (09:22)
[2019-05-20] MEDS: SPIRONOLACTONE 25 MG TABLET PO SCH (09:22)
[2019-05-20] MEDS: lamoTRIgine 100 MG TABLET. PO SCH ×2 (09:22→20:39)
[2019-05-20] MEDS: NYSTATIN TOPICAL POWDER 15GM BOTTLE. TP SCH ×2 (09:23→20:55)
[2019-05-20] MEDS: SALIVA STIMULANT AGENT 44ML SPRAY BOTTLE. PO SCH ×4 (09:23→20:55)
[2019-05-20] MEDS: POLYVINYL ALCOHOL 1.4% OPHTH SOLUTION 15ML BOTTLE. OU SCH ×4 (09:23→20:55)
[2019-05-20] MEDS: GABAPENTIN 250 MG/5 ML ORAL SOLUTION. PO SCH ×3 (09:34→20:40)
--- NOTE | 2019-05-20 09:52 | HP ---
ADMIT DATE: 05/19/2019 HISTORY OF PRESENT ILLNESS: The patient is a 73-year-old -Spanish male patient who is a resident at [facility], who presented to the Emergency Room of [facility] with increased shortness of breath. History obviously is very limited as the patient is known to have cerebrovascular accident and expressive aphasia. Facility noted the patient has increased respiratory rate. The emergency medical service personnel who brought the patient said that the patient was hypoxic on 2 liters and therefore his flow rate was increased to 10 liters that improved his oxygenation to the low 90s. He was extensively investigated in the Emergency Room and his lab work showed that his troponin was elevated at 0.283. His D-dimer was found to be high at 2.58, although his lactic acid is only 0.6. His chest x-ray showed that the patient has moderate congestive changes, bibasilar lung airspace opacities, likely atelectasis or infiltrate. Given that they were unable to do the CT scan due to difficulty with vascular access and a V/Q scan was unavailable, decision was made to admit him to [facility] to CVICU and to consult the bricklayer supervisor as well as to arrange for him to have a PICC line and arrange for a CT angio of the chest. Meanwhile, he was put on Lovenox 1 mg/kg subcutaneously twice a day. PAST MEDICAL HISTORY: Significant for vascular dementia with behavioral disturbances. The patient is incontinent of bowel and bladder. He has posttraumatic seizures, vitamin D deficiency, history of esophagitis, history of acute gastritis, anemia of chronic kidney disease, ____ cerebrovascular accident with right-sided hemiplegia, aphasia and dysphagia, history of sarcoidosis, hyperlipidemia, hypertension, allergic rhinitis, chronic obstructive pulmonary disease, chronic constipation, rheumatoid arthritis, age-related osteoporosis without pathological fracture. He also has nephrotic syndrome, benign prostatic hypertrophy, gout, and chronic kidney disease. PAST SURGICAL HISTORY: Significant for gastrostomy tube placement. ALLERGIES: HE IS ALLERGIC TO KETOROLAC, LISINOPRIL, AND MEPERIDINE. FAMILY HISTORY: Noncontributory. SOCIAL HISTORY: He is ; however, he currently resides at the [facility] [place]. He is mostly bed bound. Does not smoke, drinks alcohol, or use any recreational drugs. REVIEW OF SYSTEMS: Unobtainable. MEDICATIONS: He is currently on following medications: He is on loratadine 10 mg once a day, albuterol sulfate 2.5 mg 3 mL by nebulizer every 4 hours as needed, pravastatin sodium 10 mg at bedtime, hydralazine 50 mg 3 times a day, acetaminophen 500 mg per feeding tube every 6 hours, gabapentin 250 mg/5 mL 600 mg 3 times a day, lamotrigine 200 mg per feeding tube twice a day, Keppra 200 mg per feeding tube twice a day, lorazepam 0.5 mg every 6 hours, Refresh tears 1 drop to both eyes 4 times a day, Mylanta 30 mL every 24 hours, lactobacillus acidophilus for probiotic 1 tablet once a day, loperamide 2 mg every 6 hours as needed, simethicone 0.6 mL every 6 hours, magnesium hydroxide for milk of magnesia 30 mL p.o. daily p.r.n. for constipation, Protonix 40 mg once a day, ondansetron 4 mg per feeding tube every 6 hours, nystatin cream applied topically twice a day, nystatin powder applied topically twice a day, cholecalciferol, vitamin D3 1000 international unit once a day per feeding tube, saliva stimulant for Biotene Oral Balance 1 application p.o. 4 times a day, and Neutra-Phos 2 packets per feeding tube twice a day. PHYSICAL EXAMINATION: GENERAL: On arrival to the Emergency Room, the patient was slightly tachypneic. No jaundice, no lymphadenopathy, no thyromegaly. No jugular venous distension. No limb edema. VITAL SIGNS: His heart rate was 65, blood pressure was 164/90, temperature was 98.2, respiratory rate was 25, and oxygen saturation was 88% on room air that has improved to 96% on 3 liters by nasal cannula. HEAD, EYES, EARS, NOSE AND THROAT: Normocephalic and atraumatic. NECK: Supple. HEART: Showed normal first and second heart sounds with no gallop, rub or murmur. CHEST: Clear to auscultation. No crepitation or rhonchi. ABDOMEN: Distended. Soft with gastrostomy tube in place. NEUROLOGIC: He is encephalopathic, nonverbal. He does open his eyes, but does not act, does not follow command. He has fixed flexion contraction of all 4 limbs. LABORATORY DATA: On arrival to the Emergency Room showed white cell count 5000, hemoglobin 12, hematocrit 37, MCV 95, and platelet count 238,000. His chemistry showed a serum sodium 137, potassium 4.6, chloride 98, bicarbonate 33, anion gap of 6, BUN 25, creatinine 0.8, estimated GFR was 115 mL per minute. His glucose was 108, calcium was 9.1, total bilirubin 0.5. AST and ALT slightly elevated. Alkaline phosphatase is elevated. His troponin was 0.283. Beta natriuretic peptide was 2244. Total protein was 7.5, albumin was 2.7. His D-dimer was high at 2.58. Lactic acid was 0.6 mg. Urinalysis was essentially unremarkable. His chest x-ray showed the patient has low lung volumes, ____ heart size and pulmonary vascularity, has moderate diffuse prominent bilateral interstitial lung markings, likely congestive changes, bibasilar lung airspace opacities, likely atelectasis or infiltrate. ASSESSMENT AND PLAN: The patient was transferred to [facility] after receiving 40 mg of Lasix as well as aspirin and breathing treatment with a plan to consult the bricklayer supervisor and do 2 more sets of cardiac enzyme and also given the fact that he has difficult vascular access, we will arrange for him to have a PICC line and also arrange for CT angio of the chest to rule out possibility of pulmonary embolism given his D-dimer was 2.58. GABRIEL YOST MD DR: JOAQUÍN/abdoulaye JOB#: [id number] / [id number]
--- NOTE | 2019-05-20 10:13 | PDOC2 ---
CARDIAC CONSULT DATE OF CONSULT Date of Consult DATE: 05/20/19 TIME: 10:02 REASON FOR CONSULT Reason for Consult: Elevated troponin REFERRING PHYSICIAN Referring Physician: Dr. Soliman SOURCE Source: Chart review HISTORY OF PRESENT ILLNESS HISTORY OF PRESENT ILLNESS This is a 73 yo male who initially presented from nursing facility secondary to shortness of breath. HPI obtained from chart review as patient has a history of CVA and expressive aphasia. Staff noted to be more tachypneic. Was noted by EMS to by hypoxic. Troponin was mildly elevated along with d-dimer upon arrival to [facility]. Was transferred to [facility] for further evaluation and care as they were not able to obtain CTA due to issues with access or pulmonary perfusion scan due to equipment issues. PAST MEDICAL HISTORY Past Medical History Cardiovascular: HTN, Hyperlipidemia Pulmonary: COPD, Other CENTRAL NERVOUS SYSTEM: CVA, Dementia, Seizure GI: GERD, Other Musculoskeletal: Osteoarthritis, Other (chronic pain) Rheumatologic: Gout, Rheumatoid arthritis ENT: Allergic Rhinitis Renal/: Chronic renal insuff, UTI, Benign prostatic enlarg., Urinary Inconti nence Endocrine: Diabetes, Osteoporosis Dermatology: Other (seborrheic dermatitis) PAST SURGICAL HISTORY Past Surgical History Other (G-tube placement) FAMILY HISTORY Family History: Other (noncontributory ) SOCIAL HISTORY Smoke: No ALCOHOL: none Drugs: None Lives: Snf CURRENT MEDICATIONS CURRENT MEDICATIONS Current Medications Medications (Trade) Dose Ordered Sig/Shawanda Route PRN Reason Start Time Stop Time Status Last Admin Dose Admin Docusate Sodium (Colace Solution) 200 mg DAILY PO 05/20/19 09:00 05/20/19 09:20 Furosemide (Lasix) 40 mg DAILY PO 05/20/19 09:00 05/20/19 09:21 Gabapentin (Neurontin Oral Soln) 600 mg TID PO 05/20/19 09:00 05/20/19 09:34 Metoclopramide HCl (Reglan) 5 mg QIDACHS PO 05/20/19 07:30 05/20/19 09:21 Potassium Phos/ Sodium Phos (Phos-Nak) 2 pkt BID PO 05/20/19 09:00 05/20/19 09:21 Pantoprazole Sodium (Protonix) 40 mg DAILYAC PO 05/20/19 07:30 05/20/19 09:21 Artificial Tears (Artificial Tears) 1 drop QID OU 05/20/19 09:00 05/20/19 09:23 Hydralazine HCl (Apresoline) 50 mg TID PO 05/19/19 22:30 05/20/19 09:21 Lactobacillus Rhamnosus (Culturelle) 1 cap BID PO 05/20/19 09:00 05/20/19 09:21 Saliva Substitute (Biotene Moisturizing Mouth) 2 spray QID PO 05/20/19 09:00 05/20/19 09:23 Lamotrigine (LaMICtal) 200 mg BID PO 05/20/19 09:00 05/20/19 09:22 Cetirizine HCl (ZyrTEC) 10 mg DAILY PO 05/20/19 09:00 05/20/19 09:22 Nystatin (Nystop) 1 kristy BID TP 05/20/19 09:00 05/20/19 09:23 Potassium Bicarbonate (Potassium Effervescent Tablet) 20 meq DAILY PEG 05/20/19 09:00 05/20/19 09:22 Spironolactone (Aldactone) 50 mg DAILY PO 05/20/19 09:00 05/20/19 09:22 Amlodipine Besylate (Norvasc) 10 mg 1X ONCE PO 05/19/19 22:30 05/19/19 22:31 DC 05/19/19 22:43 Albuterol Sulfate (Ventolin Neb Soln) 2.5 mg RTQID NEB 05/20/19 08:00 05/20/19 07:50 Enoxaparin Sodium (Lovenox 80mg Syringe) 80 mg Q12HR SQ 05/19/19 23:00 05/20/19 09:20 Info (Anti-Coagulation Monitoring By Pharmacy) 1 each PRN DAILY PRN MC SEE COMMENTS 05/19/19 22:15 05/20/19 01:16 Hydralazine HCl (Apresoline Inj) 10 mg 1X ONCE IVP 05/19/19 23:00 05/19/19 23:01 DC 05/19/19 22:43 Levetiracetam (Keppra) 1,800 mg BID PEG 05/20/19 09:00 05/20/19 09:23 ALLERGIES ALLERGIES: Coded Allergies: aspirin (Verified Allergy, Intermediate, 05/20/19) ketorolac (Verified Allergy, Intermediate, 11/29/18) lisinopril (Verified Allergy, Intermediate, 11/29/18) meperidine (Verified Allergy, Intermediate, 11/29/18) ROS Review of System unobtainable PHYSICAL EXAM General: Other (eyes closed, non-verbal. Does not follow commands or response to stimuli) HEENT: Atraumatic Lungs: Other (diminished bases) Heart: Regular rate, Normal S1, Normal S2 Abdomen: Soft Extremities: No edema Skin: No significant lesion Psych/Mental Status: Other (non-verbal) MUSCULOSKELETAL: Other (quadriparesis, upper and LE contractures, bilaterally ) VITALS/I&O VITALS/I&O: Vital Signs Date Time Temp Pulse Resp B/P (MAP) Pulse Ox O2 Delivery O2 Flow Rate FiO2 05/20/19 09:21 73 209/84 05/20/19 07:51 96 Nasal Cannula 4.0 05/20/19 07:00 100.2 22 100.2 I & O 05/19/19 05/19/19 05/20/19 14:59 22:59 06:59 Intake Total 0 ml 0 ml Output Total 3000 ml Balance 0 ml -3000 ml LABS Lab: Laboratory Tests Test 05/19/19 21:40 05/20/19 05:32 Troponin I Quantitative 0.285 ng/mL (0.000-0.055) 0.303 ng/mL (0.000-0.055) White Blood Count 6.8 x10^3/uL (4.0-11.0) Red Blood Count 4.23 x10^6/uL (4.30-5.70) L Hemoglobin 13.0 g/dL (13.0-17.5) Hematocrit 39.7 % (39.0-53.0) Mean Corpuscular Volume 94 fL (79-100) Mean Corpuscular Hemoglobin 31 pg (25-35) Mean Corpuscular Hemoglobin Concent 33 g/dL (31-37) Red Cell Distribution Width 19.1 % (11.5-14.5) H Platelet Count 255 x10^3/uL (140-400) Neutrophils (%) (Auto) 86 % (31-73) H Lymphocytes (%) (Auto) 3 % (24-48) L Monocytes (%) (Auto) 9 % (0-9) Eosinophils (%) (Auto) 2 % (0-3) Basophils (%) (Auto) 0 % (0-3) Neutrophils # (Auto) 5.9 x10^3/uL (1.8-7.7) Lymphocytes # (Auto) 0.2 x10^3/uL (1.0-4.8) L Monocytes # (Auto) 0.6 x10^3/uL (0.0-1.1) Eosinophils # (Auto) 0.1 x10^3/uL (0.0-0.7) Basophils # (Auto) 0.0 x10^3/uL (0.0-0.2) Segmented Neutrophils % 93 % (35-66) H Lymphocytes % 2 % (24-48) L Monocytes % 5 % (0-10) Platelet Estimate Adequate (ADEQUATE) Anisocytosis Slight Sodium Level 136 mmol/L (136-145) Potassium Level 4.0 mmol/L (3.5-5.1) Chloride Level 96 mmol/L (98-107) L Carbon Dioxide Level 32 mmol/L (21-32) Anion Gap 8 (6-14) Blood Urea Nitrogen 21 mg/dL (8-26) Creatinine 0.9 mg/dL (0.7-1.3) Estimated GFR (Cockcroft-Gault) 100.4 Glucose Level 112 mg/dL (70-99) H Calcium Level 9.4 mg/dL (8.5-10.1) Triglycerides Level 46 mg/dL (0-150) Cholesterol Level 166 mg/dL (0-200) LDL Cholesterol, Calculated 81 mg/dL (0-100) VLDL Cholesterol, Calculated 9 mg/dL (0-40) Non-HDL Cholesterol Calculated 90 mg/dL (0-129) HDL Cholesterol 76 mg/dL (40-60) H Cholesterol/HDL Ratio 2.2 Laboratory Tests 05/20/19 05:32 Laboratory Tests 05/20/19 05:32 ASSESSMENT/PLAN ASSESSMENT/PLAN 1. Acute hypoxic respiratory failure 2. Acute on chronic systolic CHF 3. AFIB, new finding 4. Elevated troponin; highest 0.303 5. Hyperlipidemia; statin 6. Hypertension; mildly elevated 7. Elevated d-dimer; CTA when IV access is obtained. 8. H/o CVA with aphasia, quadriparesis 9. Dementia 10. Seizures; Keppra resumed 11. Contractures Recommendations Allergy to ASA Echo to assess LV systolic function Add BB Hydralazine PRN lipids On treatment dose Lovenox. Conservative measures given significant comorbidities, functional ability, and contractures. OLIVIA JAMES APRN May 20, 2019 10:13
[2019-05-20] MEDS: CHOLECALCIFEROL (VITAMIN D3) 1,000 UNIT TABLET PO SCH (11:35)
--- NOTE | 2019-05-20 13:14 | EKG ---
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
--- NOTE | 2019-05-20 14:22 | PDOC2 ---
NEUROLOGY CONSULT Date of Admission Date of Admission DATE: 05/20/19 TIME: 14:09 Reason for Consult Reason for Consult: Seizures Referring Physician Referring Physician: Dr. 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 He started having seizures in 2013. He came to the [facility] emergency room yesterday with tachypnea and was given a lower than usual dose of his levetiracetam. He is observed to have some clonic movements of the mouth and head when turning yesterday and again some today, but he is now on the full dose of levetiracetam. When I spoke to his during his last admission in 2015, she told me that he has seizures every one or 2 weeks., and that after seizures he can be unresponsive for several days. He is wheelchair-confined, in the correction. Past Medical History Cardiovascular: HTN, Hyperlipidemia Pulmonary: COPD CENTRAL NERVOUS SYSTEM: CVA, Dementia, Seizure GI: GERD, Other (C diff) Musculoskeletal: low back pain, Osteoarthritis Rheumatologic: Gout Renal/: UTI, Benign prostatic enlarg., Urinary Incontinence Endocrine: Diabetes Past Surgical History Past Surgical History: Appendectomy, Other (PEG) Family History Family History: No pertinent hx Social History Social History , quit smoking and alcohol use, correction resident Current Medications Current Medications Current Medications Acetaminophen (Tylenol) 650 mg HS PO ; Start 05/20/19 at 21:00 Acetaminophen (Tylenol) 650 mg PRN Q6HRS PRN PO MILD PAIN 1-3 Last administered on 05/20/19at 11:36; Start 05/19/19 at 21:45 Atorvastatin Calcium (Lipitor) 10 mg HS PO ; Start 05/20/19 at 21:00; Status UNV Atorvastatin Calcium (Lipitor) 10 mg QHS PO ; Start 05/20/19 at 21:00 Docusate Sodium (Colace Solution) 200 mg DAILY PO Last administered on 05/20/19at 09:20; Start 05/20/19 at 09:00 Furosemide (Lasix) 40 mg DAILY PO Last administered on 05/20/19at 09:21; Start 05/20/19 at 09:00 Gabapentin (Neurontin Oral Soln) 600 mg TID PO Last administered on 05/20/19 09:34; Start 05/20/19 at 09:00 Guaifenesin (Robitussin) 100 mg PRN Q8HRS PRN PO COUGH 1ST CHOICE; Start 05/19/19 at 21:45 Loperamide HCl (Immodium Oral Susp) 2 mg PRN Q6HRS PRN PO DIARRHEA; Start 05/19/19 at 21:45 Lorazepam (Ativan) 0.5 mg PRN Q6HRS PRN PO ANXIETY / AGITATION; Start 05/19/19 at 21:45 Metoclopramide HCl (Reglan) 5 mg QIDACHS PO Last administered on 05/20/19 11:35; Start 05/20/19 at 07:30 Potassium Phos/ Sodium Phos (Phos-Nak) 2 pkt BID PO Last administered on 05/20/19 09:21; Start 05/20/19 at 09:00 Pantoprazole Sodium (Protonix) 40 mg DAILYAC PO Last administered on 05/20/19 09:21; Start 05/20/19 at 07:30 Non-Formulary Medication (Albuterol Sulfate (Albuterol Sulfate Neb Soln)) 1 vial Q6HRS NEB ; Start 05/20/19 at 00:00; Status UNV Atropine Sulfate (Isopto Atropine) 1 drop PRN Q2HRS PRN OU OPTHALMIC DILATION; Start 05/19/19 at 22:15 Artificial Tears (Artificial Tears) 1 drop QID OU Last administered on 05/20/19 09:23; Start 05/20/19 at 09:00 Non-Formulary Medication (Carboxymethylcellulos/ Glycerin (Refresh Optive Eye Drops)) 1 drop QID EACHEYE ; Start 05/20/19 at 09:00; Status UNV Vitamin D (Vitamin D3) 1,000 unit DAILY PO Last administered on 05/20/19 11:35; Start 05/20/19 at 09:00 Hydralazine HCl (Apresoline) 50 mg TID PO Last administered on 05/20/19 09:21; Start 05/19/19 at 22:30 Lactobacillus Rhamnosus (Culturelle) 1 cap BID PO Last administered on 05/20/19 09:21; Start 05/20/19 at 09:00 Non-Formulary Medication (Lactobacillus Acidophilus (Acidophilus)) 1 each DAILY PO ; Start 05/20/19 at 09:00; Status UNV Saliva Substitute (Biotene Moisturizing Mouth) 2 spray QID PO Last administered on 05/20/19at 09:23; Start 05/20/19 at 09:00 Lamotrigine (LaMICtal) 200 mg BID PO Last administered on 05/20/19at 09:22; Start 05/20/19 at 09:00 Levetiracetam (Keppra) 200 mg BID PEG ; Start 05/20/19 at 09:00; Stop 05/20/19 at 09:00; Status DC Cetirizine HCl (ZyrTEC) 10 mg DAILY PO Last administered on 05/20/19at 09:22; Start 05/20/19 at 09:00 Al Hydroxide/Mg Hydroxide (Mylanta Plus Xs) 30 ml PRN DAILY PRN PO HEARTBURN / GAS; Start 05/19/19 at 22:00 Nystatin (Nystop) 1 alessandro BID TP Last administered on 05/20/19at 09:23; Start 05/20/19 at 09:00 Nystatin (Mycostatin) 1 alessandro PRN BID PRN TP FUNGAL RASH; Start 05/20/19 at 09:00 Ondansetron HCl (Zofran Odt) 4 mg PRN BID PRN PO NAUSEA/VOMITING 1ST CHOICE; Start 05/19/19 at 22:15 Polyethylene Glycol (miraLAX PACKET) 17 gm PRN DAILY PRN PO CONSTIPATION 1ST CHOICE; Start 05/20/19 at 09:00 Potassium Bicarbonate (Potassium Effervescent Tablet) 20 meq DAILY PEG Last a dministered on 05/20/19at 09:22; Start 05/20/19 at 09:00 Simethicone (Gas-X) 80 mg PRN AFTMEALHC PRN PO GAS / BLOATING; Start 05/19/19 at 22:00 Spironolactone (Aldactone) 50 mg DAILY PO Last administered on 05/20/19at 09:22; Start 05/20/19 at 09:00 Enoxaparin Sodium (Lovenox Per Pharmacy Treatment Dosing) 1 each PRN DAILY PRN MC SEE COMMENTS; Start 05/19/19 at 22:00 Amlodipine Besylate (Norvasc) 10 mg 1X ONCE PO Last administered on 05/19/19at 22:43; Start 05/19/19 at 22:30; Stop 05/19/19 at 22:31; Status DC Hydralazine HCl (Apresoline) 50 mg TID PO ; Start 05/20/19 at 09:00; Status UNV Albuterol Sulfate (Ventolin Neb Soln) 2.5 mg RTQID NEB Last administered on 05/20/19at 11:25; Start 05/20/19 at 08:00 Enoxaparin Sodium (Lovenox 80mg Syringe) 80 mg Q12HR SQ Last administered on 05/20/19at 09:20; Start 05/19/19 at 23:00 Info (Anti-Coagulation Monitoring By Pharmacy) 1 each PRN DAILY PRN MC SEE COMMENTS Last administered on 05/20/19at 01:16; Start 05/19/19 at 22:15 Hydralazine HCl (Apresoline Inj) 10 mg 1X ONCE IVP Last administered on 05/19/19at 22:43; Start 05/19/19 at 23:00; Stop 05/19/19 at 23:01; Status DC Levetiracetam (Keppra) 1,800 mg BID PEG Last administered on 05/20/19at 09:23; Start 05/20/19 at 09:00 Aspirin (Children'S Aspirin) 81 mg DAILYWBKFT PO ; Start 05/21/19 at 08:00; Status UNV Metoprolol Tartrate (Lopressor) 25 mg BID PO ; Start 05/20/19 at 21:00 Active Scripts Active Reglan (Metoclopramide Hcl) 10 Mg Tablet 5 Mg PO QIDACHS 30 Days Reported Acetaminophen Oral Liquid (Acetaminophen) 650 Mg/20.3 Ml Solution 650 Mg PO PRN Q6HRS PRN Preparation H Ointment (Phenyleph/Mineral Oil/Petrolat) 28 Gm Oint.appl 28 Gm RC PRN BID PRN Potassium Chloride Oral Liquid (Potassium Chloride) 20 Meq/15 Ml Liquid 20 Meq PEG DAILY Lipitor (Atorvastatin Calcium) 10 Mg Tablet 1 Tab PO QHS Lasix (Furosemide) 40 Mg Tablet 1 Tab PO DAILY Acidophilus (Lactobacillus Acidophilus) 1 Each Capsule 1 Each PO DAILY Guaifenesin 100 Mg/5 Ml Liquid 100 Mg PO PRN Q8HRS PRN Refresh Optive Eye Drops (Carboxymethylcellulos/Glycerin) 15 Ml Drops 1 Drop EACHEYE QID Atropine Sulfate 2 Ml Drops 2 Ml OP PRN Q1HR Aldactone (Spironolactone) 50 Mg Tablet 1 Tab PO DAILY Acetaminophen Oral Liquid (Acetaminophen) 650 Mg/20.3 Ml Solution 650 Mg PO HS Zofran (Ondansetron Hcl) 4 Mg Tablet 4 Mg PO BID PRN Miralax (Polyethylene Glycol 3350) 17 Gm Powd.pack 1 Pkt PO PRN DAILY PRN Atorvastatin Calcium 10 Mg Tablet 10 Mg PO HS Keppra (Levetiracetam) 100 Mg/1 Ml Solution 200 Mg PEG BID Hydralazine Hcl 50 Mg Tablet 1 Tab PO TID Docu Liquid (Docusate Sodium) 50 Mg/5 Ml Liquid 20 Ml PO DAILY Phos-Nak Packet (Naph,Mb-Db/K Ph,Mbdb) 1 Each Powd.pack 2 Each PO BID Simethicone 100 Ml Liquid 40 Mg MC PRN Q6HRS PRN Pantoprazole Sodium (Pantoprazole Sodium) 40 Mg Tablet.dr 40 Mg PO DAILY Nystatin 1 Each Powder.ea. 1 Each MC BID Nystatin 15 Gm Cream..g. 1 Alessandro TP PRN BID Mag-Al Liquid (Magnesium Hydroxide/Al Hydrox) 30 Ml Oral.susp 30 Ml PO PRN DAILY PRN Lorazepam 0.5 Mg Tablet 0.5 Mg PO PRN Q6HRS PRN Lamotrigine 200 Mg Tablet 200 Mg PO BID Acidophilus Probiotic (Lactobacillus Acidophilus) 1 Mg Tablet 1 Mg PO DAILY Imodium A-D (Loperamide Hcl) 1 Mg/7.5 Ml Liquid 2 Mg PO PRN Q6HRS PRN Gabapentin Oral Solution (Gabapentin) 250 Mg/5 Ml Solution 12 Ml PO TID Claritin (Loratadine) 10 Mg Tablet 1 Tab PO DAILY Vitamin D3 (Cholecalciferol (Vitamin D3)) 1,000 Unit Tab.chew 1,000 Unit PO DAILY Lubricant 0.5-0.9% Eye Drops (Carboxymethylcell/Glycerin/Pf) 1 Each Droperette 1 Each OP [id number] Biotene Oralbalance Gel (Lactoperoxi/Gluc Oxid/Pot Thio) 42 Gm Gel..gram. 42 Gm MM QID Albuterol Sulfate Neb Soln (Albuterol Sulfate) 1.25 Mg/3 Ml Vial.neb 1 Vial NEB Q6HRS Allergies Allergies: Coded Allergies: aspirin (Verified Allergy, Intermediate, 05/20/19) ketorolac (Verified Allergy, Intermediate, 11/29/18) lisinopril (Verified Allergy, Intermediate, 11/29/18) meperidine (Verified Allergy, Intermediate, 11/29/18) ROS Review of System Unobtainable Physical Exam Physical Examination General: Well-developed, well-nourished black male in no acute distress HEENT: Normocephalic and�atraumatic.�Temporal arteries�pulsatile. Neck: Supple without bruit, no meningismus� Musculoskeletal: Stability:�see neurologic. Gait exam:�see neurologic. Tone:�see neurologic.�Strength:�see neurologic.� Neurological: Mental Status:�orientation, memory, attention span/concentration, language, fund of knowledge: Eyes closed, nonverbal, does not follow commands. Cranial Nerves:�Pupils equal and reactive to light, no spontaneous extraocular movements, does not cooperate with visual field testing.There is no facial asymmetry. All other cranial related problems are negative except as mentioned before.�Reflexes:�2-3+ and symmetric with silent plantar responses. Motor:�spastic quadriparesis. I do not evoke any seizure activity with turning him to the left or the right. Coordination and gait:�Not cooperative. Sensory:�Not cooperative. Vitals VITALS Vital Signs Date Time Temp Pulse Resp B/P (MAP) Pulse Ox O2 Delivery O2 Flow Rate FiO2 05/20/19 11:26 97 Nasal Cannula 4.0 05/20/19 11:00 101.1 79 22 169/66 (100) 101.1 Labs Labs Laboratory Tests Test 05/19/19 21:40 05/20/19 05:32 Troponin I Quantitative 0.285 ng/mL (0.000-0.055) 0.303 ng/mL (0.000-0.055) White Blood Count 6.8 x10^3/uL (4.0-11.0) Red Blood Count 4.23 x10^6/uL (4.30-5.70) Hemoglobin 13.0 g/dL (13.0-17.5) Hematocrit 39.7 % (39.0-53.0) Mean Corpuscular Volume 94 fL (79-100) Mean Corpuscular Hemoglobin 31 pg (25-35) Mean Corpuscular Hemoglobin Concent 33 g/dL (31-37) Red Cell Distribution Width 19.1 % (11.5-14.5) Platelet Count 255 x10^3/uL (140-400) Neutrophils (%) (Auto) 86 % (31-73) Lymphocytes (%) (Auto) 3 % (24-48) Monocytes (%) (Auto) 9 % (0-9) Eosinophils (%) (Auto) 2 % (0-3) Basophils (%) (Auto) 0 % (0-3) Neutrophils # (Auto) 5.9 x10^3/uL (1.8-7.7) Lymphocytes # (Auto) 0.2 x10^3/uL (1.0-4.8) Monocytes # (Auto) 0.6 x10^3/uL (0.0-1.1) Eosinophils # (Auto) 0.1 x10^3/uL (0.0-0.7) Basophils # (Auto) 0.0 x10^3/uL (0.0-0.2) Segmented Neutrophils % 93 % (35-66) Lymphocytes % 2 % (24-48) Monocytes % 5 % (0-10) Platelet Estimate Adequate (ADEQUATE) Anisocytosis Slight Sodium Level 136 mmol/L (136-145) Potassium Level 4.0 mmol/L (3.5-5.1) Chloride Level 96 mmol/L (98-107) Carbon Dioxide Level 32 mmol/L (21-32) Anion Gap 8 (6-14) Blood Urea Nitrogen 21 mg/dL (8-26) Creatinine 0.9 mg/dL (0.7-1.3) Estimated GFR (Cockcroft-Gault) 100.4 Glucose Level 112 mg/dL (70-99) Calcium Level 9.4 mg/dL (8.5-10.1) Triglycerides Level 46 mg/dL (0-150) Cholesterol Level 166 mg/dL (0-200) LDL Cholesterol, Calculated 81 mg/dL (0-100) VLDL Cholesterol, Calculated 9 mg/dL (0-40) Non-HDL Cholesterol Calculated 90 mg/dL (0-129) HDL Cholesterol 76 mg/dL (40-60) Cholesterol/HDL Ratio 2.2 Laboratory Tests Test 05/19/19 21:40 05/20/19 05:32 Troponin I Quantitative 0.285 ng/mL (0.000-0.055) 0.303 ng/mL (0.000-0.055) White Blood Count 6.8 x10^3/uL (4.0-11.0) Red Blood Count 4.23 x10^6/uL (4.30-5.70) Hemoglobin 13.0 g/dL (13.0-17.5) Hematocrit 39.7 % (39.0-53.0) Mean Corpuscular Volume 94 fL (79-100) Mean Corpuscular Hemoglobin 31 pg (25-35) Mean Corpuscular Hemoglobin Concent 33 g/dL (31-37) Red Cell Distribution Width 19.1 % (11.5-14.5) Platelet Count 255 x10^3/uL (140-400) Neutrophils (%) (Auto) 86 % (31-73) Lymphocytes (%) (Auto) 3 % (24-48) Monocytes (%) (Auto) 9 % (0-9) Eosinophils (%) (Auto) 2 % (0-3) Basophils (%) (Auto) 0 % (0-3) Neutrophils # (Auto) 5.9 x10^3/uL (1.8-7.7) Lymphocytes # (Auto) 0.2 x10^3/uL (1.0-4.8) Monocytes # (Auto) 0.6 x10^3/uL (0.0-1.1) Eosinophils # (Auto) 0.1 x10^3/uL (0.0-0.7) Basophils # (Auto) 0.0 x10^3/uL (0.0-0.2) Segmented Neutrophils % 93 % (35-66) Lymphocytes % 2 % (24-48) Monocytes % 5 % (0-10) Platelet Estimate Adequate (ADEQUATE) Anisocytosis Slight Sodium Level 136 mmol/L (136-145) Potassium Level 4.0 mmol/L (3.5-5.1) Chloride Level 96 mmol/L (98-107) Carbon Dioxide Level 32 mmol/L (21-32) Anion Gap 8 (6-14) Blood Urea Nitrogen 21 mg/dL (8-26) Creatinine 0.9 mg/dL (0.7-1.3) Estimated GFR (Cockcroft-Gault) 100.4 Glucose Level 112 mg/dL (70-99) Calcium Level 9.4 mg/dL (8.5-10.1) Triglycerides Level 46 mg/dL (0-150) Cholesterol Level 166 mg/dL (0-200) LDL Cholesterol, Calculated 81 mg/dL (0-100) VLDL Cholesterol, Calculated 9 mg/dL (0-40) Non-HDL Cholesterol Calculated 90 mg/dL (0-129) HDL Cholesterol 76 mg/dL (40-60) Cholesterol/HDL Ratio 2.2 Assessment/Plan Assessment/Plan Impression: Epilepsy, I am not sure that these episodes with turning are seizures, most like ly are stimulus-evoked myoclonus, which will be refractory to all treatment Status-post stroke with spastic quadriparesis and global aphasia, on exam has bilateral increased tone. Recommendations: Continue current levetiracetam and lamotrigine doses. Hold on EEG, won't manager exchange. [facility] Thank you for letting me help with the patient's care. YENY AGUILAR MD May 20, 2019 14:22
--- NOTE | 2019-05-20 15:00 | NUR ---
Attempt to do a PICC in patient's room was aborted due to the PICC machine not functioning correctly. This was reported to and to Genesis Villavicencio and to the patient's nurse. RN will order a PICC by IR. Mina James RN
--- NOTE | 2019-05-20 15:03 | CARD ---
MR#: [id number] Date of Study: 05/20/2019 Ordering Physician: OLIVIA JAMES, Referring Physician: GABRIEL YOST, Tech: Delores Restrepo APPROVED REPORT EXAM: Two-dimensional and M-mode echocardiogram with Doppler and color Doppler. Other Information Quality : AverageHR: 87bpm Technically limited study due to body habitus. INDICATION Dyspnea 2D DIMENSIONS RVDd3.4 (2.9-3.5cm)Left Atrium(2D)3.7 (1.6-4.0cm) IVSd1.1 (0.7-1.1cm)Aortic Root(2D)3.4 (2.0-3.7cm) LVDd4.7 (3.9-5.9cm)LVOT Diameter2.1 (1.8-2.4cm) PWd0.9 (0.7-1.1cm)LVDs3.0 (2.5-4.0cm) FS (%) 37.3 %SV70.5 ml Aortic Valve AoV Peak John.108.3cm/sAoV VTI25.7cm AO Peak GR.4.7mmHgLVOT VTI 19.80cm AO Mean GR.5mmHg Mitral Valve MV E Wqggoaho14.9cm/sMV DECEL [id number] MV A Uezlkeyj04.3cm/sE/A Ratio1.1 TDI Lateral E' P. V10.17cm/sMedial E' P. V7.98cm/s E/Lateral E'9.0E/Medial E'11.5 Tricuspid Valve TR P. Tmstznir649pg/sRAP [id number] TR Peak Gr.59zeHpPCSN80wqEi Pulmonary Vein S1 Qnisnbli43.9cm/sS2 Lpxvnfgq04.57cm/s D2 Uhkobeip73.6cm/sPVa oqkjadmv52fxsi LEFT VENTRICLE The left ventricle is normal size. There is borderline concentric left ventricular hypertrophy. The l eft ventricular systolic function is normal and the ejection fraction is within normal range. The Eje ction Fraction is 55-60%. There is normal LV segmental wall motion. Transmitral Doppler flow pattern is Grade II-pseudonormal filling dynamics. RIGHT VENTRICLE The right ventricle is normal size. There is normal right ventricular wall thickness. The right ventr icular systolic function is normal. ATRIA The left atrium size is normal. The right atrium is borderline dilated. The interatrial septum is int act with no evidence for an atrial septal defect or patent foramen ovale as noted on 2-D or Doppler i maging. AORTIC VALVE The aortic valve is thickened but opens well. Doppler and Color Flow revealed no significant aortic r egurgitation. There is no significant aortic valvular stenosis. MITRAL VALVE The mitral valve is normal in structure and function. There is no evidence of mitral valve prolapse. There is no mitral valve stenosis. Doppler and Color Flow revealed trace mitral valve regurgitation. TRICUSPID VALVE The tricuspid valve is normal in structure and function. Doppler and Color Flow revealed trace tricus pid regurgitation with an estimated PAP of 36 mmHg. There is no tricuspid valve stenosis. PULMONIC VALVE The pulmonic valve is not well visualized. Doppler and Color Flow revealed trace pulmonic valvular re gurgitation. GREAT VESSELS The aortic root is normal in size. The IVC is normal in size and collapses >50% with inspiration. PERICARDIAL EFFUSION There is no evidence of significant pericardial effusion. Critical Notification Critical Value: No <Conclusion> The left ventricle is normal size. The left ventricular systolic function is normal and the ejection fraction is within normal range. The Ejection Fraction is 55-60%. There is borderline concentric left ventricular hypertrophy. There is no significant aortic valvular stenosis. Doppler and Color Flow revealed no significant aortic regurgitation. Doppler and Color Flow revealed trace mitral valve regurgitation. Doppler and Color Flow revealed trace tricuspid regurgitation with an estimated PAP of 36 mmHg. Signed by : Robert Parnell MD Electronically Approved : 05/20/2019 15:02:56
--- NOTE | 2019-05-20 16:26 | RAD ---
Procedure: Ultrasound-guided placement of right internal jugular central venous catheter05/20/2019 4:22 PM Clinical Indication: For peripheral IV access. Patient with spastic quadriplegia. 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 Informed consent was obtained. A timeout procedure was performed. All elements of maximal sterile barrier technique including the use of a cap, mask, sterile gown, sterile gloves, large sterile sheet, appropriate hand hygiene, and 2% chlorhexidine for cutaneous antisepsis (or acceptable alternative antiseptic per current guidelines) were followed for this procedure. The patient was prepped and draped in the usual sterile fashion. Ultrasound interrogation of the right neck revealed patency and compressibility of the right internal jugular vein. A 21-gauge micropuncture was then used to gain access to this vein under ultrasound guidance. A hard copy ultrasound image was recorded. A guidewire was advanced centrally. 5 [place] sheath was placed. Over a wire following dilatation, a triple-lumen central venous catheter was advanced centrally. Catheter was found to flush and aspirate normally. Follow-up chest radiograph demonstrates tip at the cavoatrial junction. Catheter secured in place and a sterile dressing was applied. No immediate complications were identified. Impression: Successful ultrasound-guided placement of right internal jugular triple-lumen central venous catheter
--- NOTE | 2019-05-20 16:27 | RAD ---
EXAM: CHEST 1 VIEW History: Central line placement COMPARISON: 08/14/2016 TECHNIQUE: Single portable radiograph of the chest FINDINGS: Low lung volumes and technique accentuates heart size and pulmonary vascularity. Right-sided internal jugular line tip is identified at the SVC/RA junction. Moderate prominent appearing bilateral interstitial lung markings likely congestive changes. Impression: Moderate prominent appearing bilateral interstitial lung markings likely congestive changes. Electronically signed by: Ty Reaves MD (05/20/2019 4:24 PM) [place] [id number]
[2019-05-20] MEDS ORDERED: CONTRAST GIVEN. MC PRN (17:15)
--- NOTE | 2019-05-20 17:29 | RAD ---
Examination: CT ANGIOGRAPHY CHEST History: Elevated d-dimer Comparison/Correlation: 08/14/2016 portable chest x-ray exam Findings: Axial images of chest were obtained following IV contrast according to pulmonary arteriography protocol. MIP images provided. Sagittal and coronal reformatted images provided. Moderate-sized bilateral pleural effusions are present. Bibasilar atelectasis is present. Groundglass appearance of the lung nguyen noted. Pulmonary interstitial edema noted. Scattered groundglass appearance especially of the lung apices noted. Calcific involvement of the left anterior descending coronary artery noted. Dilated cardiomegaly noted. Nonenlarged superior mediastinal lymph nodes which probably relate to vascular congestion are noted. Thoracic aorta is grossly unremarkable for the patient's age. Pulmonary arterial vasculature is normal with no thromboembolic disease. Bony structures are unremarkable for the patient's age. Impression: No pulmonary arterial thromboembolic disease. Congestive heart failure and pleural effusions. Interstitial groundglass infiltrates at the lung apices in particular noted. Consider interval follow-up to assess resolution. PQRS Compliance Statement: One or more of the following individualized dose reduction techniques were utilized for this examination: 1. Automated exposure control 2. Adjustment of the mA and/or kV according to patient size 3. Use of iterative reconstruction technique Electronically signed by: Joe Westbrook MD (05/20/2019 5:27 PM) [id number]
[2019-05-20] MEDS ORDERED: IOHEXOL 350 MG/ML 100 ML VIAL. IV ONE (17:30)
[2019-05-20] MEDS: hydrALAZINE 20 MG/ML VIAL. IVP PRN (18:14)
[2019-05-20] MEDS: ACETAMINOPHEN 650 MG/20.3 ML SOLUTION. PO SCH (20:39)
[2019-05-20] MEDS: ATORVASTATIN CALCIUM 10 MG TABLET. PO SCH (20:39)
[2019-05-20] MEDS ORDERED: METOPROLOL TART IMMED RELEASE 25 MG TABLET. PO SCH (21:00)
[2019-05-20] MEDS ORDERED: ATORVASTATIN CALCIUM 10 MG TABLET. PO SCH (21:00)
[2019-05-21 03:30] VITALS: BP 134/57
[2019-05-21 07:00] VITALS: BP 146/59
[2019-05-21] MEDS: ALBUTEROL SULFATE 2.5 MG/3 ML NEBU. NEB SCH ×4 (07:18→20:09)
[2019-05-21] MEDS: PANTOPRAZOLE 40 MG TABLET.DR. PO SCH (07:30)
[2019-05-21] MEDS: GABAPENTIN 250 MG/5 ML ORAL SOLUTION. PO SCH ×3 (07:58→21:21)
[2019-05-21] MEDS: DOCUSATE 100 MG/10 ML SOLUTION. PO SCH (07:59)
[2019-05-21] MEDS: POTASSIUM BICARB 20 MEQ EFFERVESCENT TABLET. PEG SCH (08:00)
[2019-05-21] MEDS ORDERED: ASPIRIN CHEWABLE 81 MG TABLET. PO SCH (08:00)
[2019-05-21] MEDS: LACTOBACILLUS RHAMNOSUS GG 1 CAPSULE. PO SCH ×2 (08:00→21:18)
[2019-05-21] MEDS: POTASSIUM & SODIUM PHOSPHATES PACKET. PO SCH ×2 (08:01→21:17)
[2019-05-21] MEDS: METOCLOPRAMIDE 5 MG TABLET. PO SCH ×4 (08:02→21:18)
[2019-05-21] MEDS: SPIRONOLACTONE 25 MG TABLET PO SCH (08:02)
[2019-05-21] MEDS: FUROSEMIDE 40 MG TABLET. PO SCH (08:02)
[2019-05-21] MEDS: CHOLECALCIFEROL (VITAMIN D3) 1,000 UNIT TABLET PO SCH (08:03)
[2019-05-21] MEDS: CETIRIZINE HCL 10 MG TABLET. PO SCH (08:03)
[2019-05-21] MEDS: lamoTRIgine 100 MG TABLET. PO SCH ×2 (08:05→21:17)
[2019-05-21] MEDS: POLYVINYL ALCOHOL 1.4% OPHTH SOLUTION 15ML BOTTLE. OU SCH ×4 (08:07→21:33)
[2019-05-21] MEDS: NYSTATIN TOPICAL POWDER 15GM BOTTLE. TP SCH ×2 (08:08→21:34)
[2019-05-21] MEDS: SALIVA STIMULANT AGENT 44ML SPRAY BOTTLE. PO SCH ×4 (08:08→21:33)
--- NOTE | 2019-05-21 08:50 | NUR ---
SS following for discharge planning. SS reviewed pt chart. Pt is from home with spouse and is currently requiring oxygen. No discharge needs noted at this time. SS will continue to follow for discharge planning. Addendum: 05/22/19 at 0853 by BLAYNE NEWMAN SS CORRECTION TO PREVIOUS NOTE: SS received notification that pt was from [facility] in [place], ; fax [phone]. SS contacted [facility] and verified that pt was a LTC resident from there facility and was able to return when medically stable for transfer.
--- NOTE | 2019-05-21 09:55 | PDOC ---
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 Plan Continue current levetiracetam and lamotrigine doses. Hold on EEG, won't changer fixer. Continue to see the neurologists at the [facility] Subjective None Objective Vital Signs Date Time Temp Pulse Resp B/P (MAP) Pulse Ox O2 Delivery O2 Flow Rate FiO2 05/21/19 08:02 49 146/59 05/21/19 08:00 Nasal Cannula 3.0 05/21/19 07:18 98 05/21/19 07:00 98.4 16 98.4 Intake and Output 05/21/19 06:59 Intake Total 497 ml Output Total 350 ml Balance 147 ml Tube Feeding 497 ml Output Urine Total 350 ml PHYSICAL EXAM Eyes closed, no verbal response, does not follow commands PERRL. No spontaneous extraocular movements CN: no focal findings. Muscle tone: spastic Muscle strength: no movement, no convulsive activity evoked DTR: 2-3+ Plantar reflex: silent Gait: not examined. Sensory exam: not cooperative Cerebellar: not cooperative Review of Relevant I have reviewed the following items josh (where applicable) has been applied. Labs Laboratory Tests Test 05/19/19 21:40 05/19/19 23:34 05/20/19 05:32 Troponin I Quantitative 0.285 ng/mL (0.000-0.055) 0.303 ng/mL (0.000-0.055) Nasal Screen MRSA (PCR) Negative (Negative) White Blood Count 6.8 x10^3/uL (4.0-11.0) Red Blood Count 4.23 x10^6/uL (4.30-5.70) Hemoglobin 13.0 g/dL (13.0-17.5) Hematocrit 39.7 % (39.0-53.0) Mean Corpuscular Volume 94 fL (79-100) Mean Corpuscular Hemoglobin 31 pg (25-35) Mean Corpuscular Hemoglobin Concent 33 g/dL (31-37) Red Cell Distribution Width 19.1 % (11.5-14.5) Platelet Count 255 x10^3/uL (140-400) Neutrophils (%) (Auto) 86 % (31-73) Lymphocytes (%) (Auto) 3 % (24-48) Monocytes (%) (Auto) 9 % (0-9) Eosinophils (%) (Auto) 2 % (0-3) Basophils (%) (Auto) 0 % (0-3) Neutrophils # (Auto) 5.9 x10^3/uL (1.8-7.7) Lymphocytes # (Auto) 0.2 x10^3/uL (1.0-4.8) Monocytes # (Auto) 0.6 x10^3/uL (0.0-1.1) Eosinophils # (Auto) 0.1 x10^3/uL (0.0-0.7) Basophils # (Auto) 0.0 x10^3/uL (0.0-0.2) Segmented Neutrophils % 93 % (35-66) Lymphocytes % 2 % (24-48) Monocytes % 5 % (0-10) Platelet Estimate Adequate (ADEQUATE) Anisocytosis Slight Sodium Level 136 mmol/L (136-145) Potassium Level 4.0 mmol/L (3.5-5.1) Chloride Level 96 mmol/L (98-107) Carbon Dioxide Level 32 mmol/L (21-32) Anion Gap 8 (6-14) Blood Urea Nitrogen 21 mg/dL (8-26) Creatinine 0.9 mg/dL (0.7-1.3) Estimated GFR (Cockcroft-Gault) 100.4 Glucose Level 112 mg/dL (70-99) Calcium Level 9.4 mg/dL (8.5-10.1) Triglycerides Level 46 mg/dL (0-150) Cholesterol Level 166 mg/dL (0-200) LDL Cholesterol, Calculated 81 mg/dL (0-100) VLDL Cholesterol, Calculated 9 mg/dL (0-40) Non-HDL Cholesterol Calculated 90 mg/dL (0-129) HDL Cholesterol 76 mg/dL (40-60) Cholesterol/HDL Ratio 2.2 Medications Current Medications Acetaminophen (Tylenol) 650 mg HS PO Last administered on 05/20/19at 20:39; Start 05/20/19 at 21:00 Acetaminophen (Tylenol) 650 mg PRN Q6HRS PRN PO MILD PAIN 1-3 Last administered on 05/20/19at 11:36; Start 05/19/19 at 21:45 Atorvastatin Calcium (Lipitor) 10 mg HS PO ; Start 05/20/19 at 21:00; Status UNV Atorvastatin Calcium (Lipitor) 10 mg QHS PO Last administered on 05/20/19at 20:39; Start 05/20/19 at 21:00 Docusate Sodium (Colace Solution) 200 mg DAILY PO Last administered on 05/21/19 07:59; Start 05/20/19 at 09:00 Furosemide (Lasix) 40 mg DAILY PO Last administered on 05/21/19 08:02; Start 05/20/19 at 09:00 Gabapentin (Neurontin Oral Soln) 600 mg TID PO Last administered on 05/21/19 07:58; Start 05/20/19 at 09:00 Guaifenesin (Robitussin) 100 mg PRN Q8HRS PRN PO COUGH 1ST CHOICE; Start 05/19/19 at 21:45 Loperamide HCl (Immodium Oral Susp) 2 mg PRN Q6HRS PRN PO DIARRHEA; Start 05/19/19 at 21:45 Lorazepam (Ativan) 0.5 mg PRN Q6HRS PRN PO ANXIETY / AGITATION; Start 05/19/19 at 21:45 Metoclopramide HCl (Reglan) 5 mg QIDACHS PO Last administered on 05/21/19at 08:02; Start 05/20/19 at 07:30 Potassium Phos/ Sodium Phos (Phos-Nak) 2 pkt BID PO Last administered on 05/21/19at 08:01; Start 05/20/19 at 09:00 Pantoprazole Sodium (Protonix) 40 mg DAILYAC PO Last administered on 05/20/19 09:21; Start 05/20/19 at 07:30 Non-Formulary Medication (Albuterol Sulfate (Albuterol Sulfate Neb Soln)) 1 vial Q6HRS NEB ; Start 05/20/19 at 00:00; Status UNV Atropine Sulfate (Isopto Atropine) 1 drop PRN Q2HRS PRN OU OPTHALMIC DILATION; Start 05/19/19 at 22:15 Artificial Tears (Artificial Tears) 1 drop QID OU Last administered on 05/21/19 08:07; Start 05/20/19 at 09:00 Non-Formulary Medication (Carboxymethylcellulos/ Glycerin (Refresh Optive Eye Drops)) 1 drop QID EACHEYE ; Start 05/20/19 at 09:00; Status UNV Vitamin D (Vitamin D3) 1,000 unit DAILY PO Last administered on 05/21/19 08:03; Start 05/20/19 at 09:00 Hydralazine HCl (Apresoline) 50 mg TID PO Last administered on 05/20/19 14:58; Start 05/19/19 at 22:30; Stop 05/20/19 at 18:07; Status DC Lactobacillus Rhamnosus (Culturelle) 1 cap BID PO Last administered on 05/21/19 08:00; Start 05/20/19 at 09:00 Non-Formulary Medication (Lactobacillus Acidophilus (Acidophilus)) 1 each DAILY PO ; Start 05/20/19 at 09:00; Status UNV Saliva Substitute (Biotene Moisturizing Mouth) 2 spray QID PO Last administered on 05/21/19 08:08; Start 05/20/19 at 09:00 Lamotrigine (LaMICtal) 200 mg BID PO Last administered on 05/21/19 08:05; Start 05/20/19 at 09:00 Levetiracetam (Keppra) 200 mg BID PEG ; Start 05/20/19 at 09:00; Stop 05/20/19 at 09:00; Status DC Cetirizine HCl (ZyrTEC) 10 mg DAILY PO Last administered on 05/21/19at 08:03; Start 05/20/19 at 09:00 Al Hydroxide/Mg Hydroxide (Mylanta Plus Xs) 30 ml PRN DAILY PRN PO HEARTBURN / GAS; Start 05/19/19 at 22:00 Nystatin (Nystop) 1 alessandro BID TP Last administered on 05/21/19at 08:08; Start 05/20/19 at 09:00 Nystatin (Mycostatin) 1 alessandro PRN BID PRN TP FUNGAL RASH; Start 05/20/19 at 09:00 Ondansetron HCl (Zofran Odt) 4 mg PRN BID PRN PO NAUSEA/VOMITING 1ST CHOICE; Start 05/19/19 at 22:15 Polyethylene Glycol (miraLAX PACKET) 17 gm PRN DAILY PRN PO CONSTIPATION 1ST CHOICE; Start 05/20/19 at 09:00 Potassium Bicarbonate (Potassium Effervescent Tablet) 20 meq DAILY PEG Last administered on 05/21/19at 08:00; Start 05/20/19 at 09:00 Simethicone (Gas-X) 80 mg PRN AFTMEALHC PRN PO GAS / BLOATING; Start 05/19/19 at 22:00 Spironolactone (Aldactone) 50 mg DAILY PO Last administered on 05/21/19 08:02; Start 05/20/19 at 09:00 Enoxaparin Sodium (Lovenox Per Pharmacy Treatment Dosing) 1 each PRN DAILY PRN MC SEE COMMENTS; Start 05/19/19 at 22:00 Amlodipine Besylate (Norvasc) 10 mg 1X ONCE PO Last administered on 05/19/19at 22:43; Start 05/19/19 at 22:30; Stop 05/19/19 at 22:31; Status DC Hydralazine HCl (Apresoline) 50 mg TID PO ; Start 05/20/19 at 09:00; Status UNV Albuterol Sulfate (Ventolin Neb Soln) 2.5 mg RTQID NEB Last administered on 05/21/19 07:18; Start 05/20/19 at 08:00 Enoxaparin Sodium (Lovenox 80mg Syringe) 80 mg Q12HR SQ Last administered on 05/20/19 09:20; Start 05/19/19 at 23:00 Info (Anti-Coagulation Monitoring By Pharmacy) 1 each PRN DAILY PRN MC SEE CO MMENTS Last administered on 05/20/19 01:16; Start 05/19/19 at 22:15 Hydralazine HCl (Apresoline Inj) 10 mg 1X ONCE IVP Last administered on 05/19/19at 22:43; Start 05/19/19 at 23:00; Stop 05/19/19 at 23:01; Status DC Levetiracetam (Keppra) 1,800 mg BID PEG Last administered on 05/21/19 07:57; Start 05/20/19 at 09:00 Aspirin (Children'S Aspirin) 81 mg DAILYWBKFT PO ; Start 05/21/19 at 08:00; Status UNV Metoprolol Tartrate (Lopressor) 25 mg BID PO Last administered on 05/20/19at 20:39; Start 05/20/19 at 21:00 Iohexol (Omnipaque 350 Mg/ml) 100 ml 1X ONCE IV Last administered on 05/20/19at 17:01; Start 05/20/19 at 17:30; Stop 05/20/19 at 17:31; Status DC Info (CONTRAST GIVEN -- Rx MONITORING) 1 each PRN DAILY PRN MC SEE COMMENTS; Start 05/20/19 at 17:15; Stop 05/22/19 at 17:14 Hydralazine HCl (Apresoline) 100 mg TID PO Last administered on 05/21/19at 08:02; Start 05/20/19 at 21:00 Hydralazine HCl (Apresoline Inj) 20 mg PRN Q4HRS PRN IVP ELEVATED BP, SEE COMMENTS Last administered on 05/20/19at 18:14; Start 05/20/19 at 18:15 Active Scripts Active Reglan (Metoclopramide Hcl) 10 Mg Tablet 5 Mg PO QIDACHS 30 Days Reported Acetaminophen Oral Liquid (Acetaminophen) 650 Mg/20.3 Ml Solution 650 Mg PO PRN Q6HRS PRN Preparation H Ointment (Phenyleph/Mineral Oil/Petrolat) 28 Gm Oint.appl 28 Gm RC PRN BID PRN Potassium Chloride Oral Liquid (Potassium Chloride) 20 Meq/15 Ml Liquid 20 Meq PEG DAILY Lipitor (Atorvastatin Calcium) 10 Mg Tablet 1 Tab PO QHS Lasix (Furosemide) 40 Mg Tablet 1 Tab PO DAILY Acidophilus (Lactobacillus Acidophilus) 1 Each Capsule 1 Each PO DAILY Guaifenesin 100 Mg/5 Ml Liquid 100 Mg PO PRN Q8HRS PRN Refresh Optive Eye Drops (Carboxymethylcellulos/Glycerin) 15 Ml Drops 1 Drop EACHEYE QID Atropine Sulfate 2 Ml Drops 2 Ml OP PRN Q1HR Aldactone (Spironolactone) 50 Mg Tablet 1 Tab PO DAILY Acetaminophen Oral Liquid (Acetaminophen) 650 Mg/20.3 Ml Solution 650 Mg PO HS Zofran (Ondansetron Hcl) 4 Mg Tablet 4 Mg PO BID PRN Miralax (Polyethylene Glycol 3350) 17 Gm Powd.pack 1 Pkt PO PRN DAILY PRN Atorvastatin Calcium 10 Mg Tablet 10 Mg PO HS Keppra (Levetiracetam) 100 Mg/1 Ml Solution 200 Mg PEG BID Hydralazine Hcl 50 Mg Tablet 1 Tab PO TID Docu Liquid (Docusate Sodium) 50 Mg/5 Ml Liquid 20 Ml PO DAILY Phos-Nak Packet (Naph,Mb-Db/K Ph,Mbdb) 1 Each Powd.pack 2 Each PO BID Simethicone 100 Ml Liquid 40 Mg MC PRN Q6HRS PRN Pantoprazole Sodium (Pantoprazole Sodium) 40 Mg Tablet.dr 40 Mg PO DAILY Nystatin 1 Each Powder.ea. 1 Each MC BID Nystatin 15 Gm Cream..g. 1 Alessandro TP PRN BID Mag-Al Liquid (Magnesium Hydroxide/Al Hydrox) 30 Ml Oral.susp 30 Ml PO PRN DAILY PRN Lorazepam 0.5 Mg Tablet 0.5 Mg PO PRN Q6HRS PRN Lamotrigine 200 Mg Tablet 200 Mg PO BID Acidophilus Probiotic (Lactobacillus Acidophilus) 1 Mg Tablet 1 Mg PO DAILY Imodium A-D (Loperamide Hcl) 1 Mg/7.5 Ml Liquid 2 Mg PO PRN Q6HRS PRN Gabapentin Oral Solution (Gabapentin) 250 Mg/5 Ml Solution 12 Ml PO TID Claritin (Loratadine) 10 Mg Tablet 1 Tab PO DAILY Vitamin D3 (Cholecalciferol (Vitamin D3)) 1,000 Unit Tab.chew 1,000 Unit PO DAILY Lubricant 0.5-0.9% Eye Drops (Carboxymethylcell/Glycerin/Pf) 1 Each Droperette 1 Each OP [id number] Biotene Oralbalance Gel (Lactoperoxi/Gluc Oxid/Pot Thio) 42 Gm Gel..gram. 42 Gm MM QID Albuterol Sulfate Neb Soln (Albuterol Sulfate) 1.25 Mg/3 Ml Vial.neb 1 Vial NEB Q6HRS Vitals/I & O Vital Sign - Last 24 Hours 05/20/19 05/20/19 05/20/19 05/20/19 11:00 11:26 14:58 15:00 Temp 101.1 98.8 101.1 98.8 Pulse 79 79 74 Resp 22 22 B/P (MAP) 169/66 (100) 169/66 198/73 (114) Pulse Ox 91 97 99 O2 Delivery Nasal Cannula Nasal Cannula Nasal Cannula O2 Flow Rate 4.0 4.0 4.0 05/20/19 05/20/19 05/20/19 05/20/19 15:24 18:14 19:00 20:00 Temp 98.7 98.7 Pulse 79 72 Resp 18 B/P (MAP) 169/66 160/56 (90) Pulse Ox 95 97 O2 Delivery Nasal Cannula Nasal Cannula Nasal Cannula O2 Flow Rate 4.0 4.0 4.0 05/20/19 05/20/19 05/20/19 05/20/19 20:12 20:39 20:39 23:00 Temp 99.2 99.2 Pulse 72 72 73 Resp 20 B/P (MAP) 160/56 160/56 131/62 (85) Pulse Ox 96 99 O2 Delivery Nasal Cannula Nasal Cannula O2 Flow Rate 4.0 4.0 05/21/19 05/21/19 05/21/19 05/21/19 03:30 07:00 07:18 08:00 Temp 98.4 98.4 Pulse 60 55 Resp 16 16 B/P (MAP) 134/57 (82) 146/59 (88) Pulse Ox 98 100 98 O2 Delivery Nasal Cannula Nasal Cannula Nasal Cannula Nasal Cannula O2 Flow Rate 4.0 4.0 3.0 3.0 05/21/19 08:02 Pulse 49 B/P (MAP) 146/59 Intake and Output 05/20/19 05/20/19 05/21/19 14:59 22:59 06:59 Intake Total 497 ml Output Total 350 ml Balance 147 ml YENY AGUILAR MD May 21, 2019 09:55
--- NOTE | 2019-05-21 10:39 | PDOC ---
CARDIO Progress Notes Date and Time Date of Service 05/21/19 Time of Evaluation 1010 Subjective Subjective: No Chest Pain, No shortness of breath, No Palpitations Vitals Vitals Vital Signs Date Time Temp Pulse Resp B/P (MAP) Pulse Ox O2 Delivery O2 Flow Rate FiO2 05/21/19 08:02 49 146/59 05/21/19 08:00 Nasal Cannula 3.0 05/21/19 07:18 98 05/21/19 07:00 98.4 16 98.4 Weight Weight [ ] Input and Output Intake and Output Intake and Output 05/21/19 06:59 Intake Total 497 ml Output Total 350 ml Balance 147 ml Tube Feeding 497 ml Output Urine Total 350 ml Physical Exam HEENT: Neck Supple W Full Motion Chest: Symmetric LUNGS: Other (bibasilar crackles ) Heart: S1S2, other (SR with high-grade block) Abdomen: Soft N/T Extremities: No Edema Neurology: other (non-responsive ) Assessment Assessment 1. Acute hypoxic respiratory failure 2. Acute on chronic systolic CHF; Echo has LVEF 55-60%. CTA with congestion 3. AFIB, new finding. Now SR with high-grade block 4. Elevated troponin; highest 0.303 5. Hyperlipidemia; statin 6. Hypertension; mildly elevated 7. Elevated d-dimer; CTA when IV access is obtained. 8. H/o CVA with aphasia, quadriparesis 9. Dementia 10. Seizures; Keppra resumed 11. Contractures 12. SSS; bradycardic; lowest upper 40's. tele notable for intermittent high- grade block. Recommendations Discontinue BB. Avoid AV jocelyne blocking agents. Lasix IV x1. Will need to address goal of care with family; consider palliative care consult ? candidate for PPM. Would favor conservative measures significant comorbiditie s, functional ability, and contractures. OLIVIA JMAES APRN May 21, 2019 10:39
[2019-05-21 11:00] VITALS: BP 118/60
[2019-05-21] MEDS ORDERED: FUROSEMIDE 40 MG/4 ML VIAL. IVP ONE (11:00)
[2019-05-21] MEDS: LANSOPRAZOLE 30 MG TAB.RAP.DR FT SCH (11:08)
--- NOTE | 2019-05-21 11:56 | EKG ---
[facility] [address] [place] [address] Test Date: 2019-05-21 Test Time: 11:48:14 Pat Name: CARRILLO MUNROE Department: Room: 208 1 Gender: M Water Analyst: : 1945 Requested By: OLIVIA JAMES Order Number: [id number] Reading MD: Measurements Intervals [place] Rate: 65 P: IN: QRS: -64 QRSD: 122 T: 86 QT: 434 QTc: 452 Interpretive Statements IRREGULAR RHYTHM, NO P-WAVE FOUND ABNORMAL LEFT AXIS DEVIATION LVH WITH REPOLARIZATION ABNORMALITY ABNORMAL ECG RI6.01 Unconfirmed report Compared to ECG 08/14/2016 08:06:55 Left ventricular hypertrophy now present Early repolarization now present Sinus rhythm no longer present First degree AV block no longer present T-wave abnormality no longer present
[2019-05-21 15:00] VITALS: BP 162/66
--- NOTE | 2019-05-21 16:34 | PDOC2 ---
PALLIATIVE CARE Palliative Care Note Palliative Care Consult requested by to address goals of care. Medical Assessment per medical record; Respiratory Failure, CHF, at fib. 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 Patient unresponsive to verbal/tactile stimuli; HR 57, 118/60. Met with Tanja, daughter Minerva, step son--Jonathon, sister/Arpita per phone. Reviewed above medical condition. Discussed patient's usual state of health at the senior care. Family shared patient "knows the family/talks" more responsive after a seizure, gets up in the chair every day" Family states he wants everything done, but have never had any specific conversation about quality of life Discussed options for care with heart block. and daughter (RN) states that as long as he is responding everything including full code and full aggressive care should be done. Discussed risks and benefits of treatments including pacemaker. Family would like to speak with hostel manager about risks and benefits as well. After meeting attempted to get response from patient. No response or attempt to open eyes. Spoke with Multimedia Educational Specialist at Care Home--Patient with little response at the senior care-"-keeps eyes closed, "grunts occasionally " "have had several discussions about hospice" declines hospice. 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 Plan: Meeting tomorrow at 1130 to see if any changes. Full Code. Family want to discuss risks and benefits of pacemaker with hostel manager. NICOLLE BOWDEN May 21, 2019 16:34
[2019-05-21 19:52] VITALS: BP 131/57
[2019-05-21] MEDS: ACETAMINOPHEN 650 MG/20.3 ML SOLUTION. PO SCH (21:17)
[2019-05-21] MEDS: ATORVASTATIN CALCIUM 10 MG TABLET. PO SCH (21:18)
--- NOTE | 2019-05-21 22:24 | PN ---
DATE: 05/21/2019 HISTORY OF PRESENT ILLNESS: The patient is resting slightly propped up in bed, in no apparent distress, has had the CT angio of the chest, which showed no evidence of pulmonary emboli. However, he did show that he was in congestive heart failure. Has bilateral pleural effusion, has also interstitial ground-glass infiltrate at the lung apices, in particular noted to consider interval followup to assess resolution. His troponin continued to be elevated, and he was seen in consultation by the Cardiology team. However, the Cardiology team recommended conservative measures given significant comorbidities, functional ability and contracture. PHYSICAL EXAMINATION: GENERAL: When I saw him this morning, he looked well and was clearly in no apparent respiratory distress. He had no pallor, jaundice, cyanosis, or thyromegaly. No jugular venous distension. No lower limb edema. VITAL SIGNS: Her heart rate was 49, blood pressure was 146/59, temperature was 98.4, respiratory rate was 16, and oxygen saturation was 98% on 3 liters of oxygen by nasal cannula. HEAD, EYES, EARS, NOSE AND THROAT: Showed normocephalic, atraumatic. NECK: Supple. HEART: Showed normal first and second heart sounds. No gallop, rub or murmur. CHEST: Clear to auscultation. No crepitation or rhonchi. ABDOMEN: Distended, soft with gastrostomy tube in place. There was no guarding or rigidity. No organomegaly with hernial orifice intact. Bowel sounds normal. NEUROLOGIC: He was encephalopathic, nonverbal with fixed flexion contraction of all 4 limbs. He has an indwelling Palencia catheter. His intake over the last 24 hours was incompletely recorded, output was 3000. LABORATORY DATA: His lab work this morning showed his serum sodium was 136, potassium 4, chloride 96, bicarbonate 32, anion gap of 8, BUN 21, creatinine 0.9, estimated GFR was 100 mL per minute, his glucose 112 and calcium was 9.4. His troponin has risen up to 0.303. Triglycerides were 46, total cholesterol 166, LDL was 681, VLDL was 9 and HDL cholesterol 76 and the ratio was 2.2. His nasal screen for MRSA PCR was negative. ASSESSMENT: Increasing shortness of breath, tachypnea and hypoxia, likely due to acute congestive heart failure and elevated troponin. Other medical problems include atrial fibrillation, hyperlipidemia, hypertension, elevated D-dimer with negative CT angiogram for pulmonary emboli, has multiple cerebrovascular accidents with aphasia and quadriplegia, dementia, seizure disorder for which he is on Keppra and severe fixed flexion contracture. PLAN: Discontinue therapeutic Lovenox and switch him only to prophylactic Lovenox. The tourist agent recommended only conservative measures given significant comorbidities and functional disabilities. We will continue with diuresing him. We have consulted the palliative care to discuss with the family the goals of care. GABRIEL YOST MD DR: JOAQUÍN/abdoulaye JOB#: [id number] / [id number]
[2019-05-21 23:27] VITALS: BP 136/71
[2019-05-22 03:20] VITALS: BP 150/56
[2019-05-22 06:12] LABS: HEMATOCRIT 36.1 % (39.0-53.0); RED BLOOD COUNT 3.82 x10^6/uL (4.30-5.70); RED CELL DISTRIBUTION WIDTH 18.3 % (11.5-14.5); WHITE BLOOD COUNT 5.9 x10^3/uL (4.0-11.0)
[2019-05-22 06:30] LABS: ALBUMIN 2.6 g/dL (3.4-5.0); ALBUMIN/GLOBULIN RATIO 0.5 (1.0-1.7); CALCIUM 8.6 mg/dL (8.5-10.1); CREATININE 1.4 mg/dL (0.7-1.3); GFR 60.3; POTASSIUM 4.1 mmol/L (3.5-5.1); TOTAL BILIRUBIN 0.5 mg/dL (0.2-1.0); TOTAL PROTEIN 8.1 g/dL (6.4-8.2)
[2019-05-22 07:00] VITALS: BP 151/81
[2019-05-22] MEDS: ALBUTEROL SULFATE 2.5 MG/3 ML NEBU. NEB SCH ×4 (07:41→20:12)
[2019-05-22] MEDS: SPIRONOLACTONE 25 MG TABLET PO SCH (08:14)
[2019-05-22] MEDS: LANSOPRAZOLE 30 MG TAB.RAP.DR FT SCH (08:14)
[2019-05-22] MEDS: CETIRIZINE HCL 10 MG TABLET. PO SCH (08:15)
[2019-05-22] MEDS: lamoTRIgine 100 MG TABLET. PO SCH ×2 (08:19→21:02)
[2019-05-22] MEDS: ENOXAPARIN 40 MG/0.4 ML SYRINGE. SQ SCH (08:19)
[2019-05-22] MEDS: POTASSIUM BICARB 20 MEQ EFFERVESCENT TABLET. PEG SCH (08:20)
[2019-05-22] MEDS: POTASSIUM & SODIUM PHOSPHATES PACKET. PO SCH ×2 (08:20→21:02)
[2019-05-22] MEDS: DOCUSATE 100 MG/10 ML SOLUTION. PO SCH (08:20)
[2019-05-22] MEDS: CHOLECALCIFEROL (VITAMIN D3) 1,000 UNIT TABLET PO SCH (08:21)
[2019-05-22] MEDS: METOCLOPRAMIDE 5 MG TABLET. PO SCH ×4 (08:21→21:00)
[2019-05-22] MEDS: FUROSEMIDE 40 MG TABLET. PO SCH (08:21)
[2019-05-22] MEDS: LACTOBACILLUS RHAMNOSUS GG 1 CAPSULE. PO SCH ×2 (08:21→21:02)
[2019-05-22] MEDS: GABAPENTIN 250 MG/5 ML ORAL SOLUTION. PO SCH ×3 (08:23→21:04)
[2019-05-22] MEDS: SALIVA STIMULANT AGENT 44ML SPRAY BOTTLE. PO SCH ×4 (08:24→21:01)
[2019-05-22] MEDS: NYSTATIN TOPICAL POWDER 15GM BOTTLE. TP SCH ×2 (08:24→21:04)
[2019-05-22] MEDS: POLYVINYL ALCOHOL 1.4% OPHTH SOLUTION 15ML BOTTLE. OU SCH ×4 (08:24→21:01)
--- NOTE | 2019-05-22 10:27 | PN ---
DATE: 05/22/2019 SUBJECTIVE: The patient is resting, slightly propped up in bed, in no apparent respiratory distress. His heart rate is much improved after the discontinuation of his beta blockers. Nursing staff did not voice any concerns that he has generally uneventful night. Apparently, the palliative care team spoke with the family who wants everything to be done including a pacemaker if they deem necessary. PHYSICAL EXAMINATION: GENERAL: When I examined him, he looked well and was clearly in no apparent respiratory distress. No pallor, jaundice, cyanosis, or thyromegaly. No jugular venous distension. No lower limb edema. VITAL SIGNS: His heart rate was 77, blood pressure was 151/81, temperature was 98.7, respiratory rate was 24, and oxygen saturation was 99% on 3 liters of oxygen by nasal cannula. HEAD, EYES, EARS, NOSE AND THROAT: Showed normocephalic, atraumatic. NECK: Supple. HEART: Showed normal first and second heart sounds. No gallop, rub or murmur. CHEST: Clear to auscultation. No crepitation or rhonchi. ABDOMEN: Distended, soft with gastrostomy tube in place and diverting colostomy in the left lower quadrant. There is no guarding or rigidity. No organomegaly. All hernial orifice intact. Bowel sounds normal. NEUROLOGIC: He is encephalopathic, nonverbal. Has fixed flexion contraction of all 4 limbs. He is mostly bed bound. His intake over the last 24 hours was 497, output was 350. LABORATORY DATA: As of this morning, his white cell count of 5900, hemoglobin 12, hematocrit 36, MCV 95, and platelet count 233,000. His chemistry showed a serum sodium 133, potassium 4.1, chloride 95, bicarbonate 31, anion gap of 7, BUN 28, creatinine 1.4, estimated GFR was 60 mL per minute. His glucose was 101. Calcium was 8.6. Total bilirubin, AST, ALT, alkaline phosphatase are slightly elevated. His beta natriuretic peptide was 3838. His total protein was 8.1, albumin was 2.6. ASSESSMENT: 1. Increasing shortness of breath, tachypnea, hypoxia likely due to acute on chronic congestive heart failure. 2. Elevated troponin, most likely due to non-ST segment elevation myocardial infarction. 3. Other medical problems include; A. Atrial fibrillation. B. Hyperlipidemia. C. Hypertension. D. Multiple cerebrovascular accidents. E. Aphasia and quadriplegia. F. Dementia. G. Seizure disorder, he is on Keppra. PLAN: To continue with the IV Lasix. Continue with DVT prophylaxis. Continue with GI prophylaxis. Continue with Keppra for seizure disorder. He continued to have episodes of second-degree Mobitz type 1 heart block. Await the evaluation by the network designer to see if he is a candidate for pacemaker. GABRIEL YOST MD DR: JOAQUÍN/abdoulaye JOB#: [id number] / [id number]
[2019-05-22 11:00] VITALS: BP 114/65
--- NOTE | 2019-05-22 12:26 | PDOC2 ---
PALLIATIVE CARE Palliative Care Note Palliative Care Patient remains unresponsive to verbal and tactile stimuli. Does not follow commands. Spoke with Tanja. Daughter and step son unable to attend meeting. Tanja states that patient did respond to her and answered "yes" to question. unable to get response from patient now Discussed results of neurology assessment; stimulus evoked myoclonus response. responded "I call them seizures" Tnaja requesting more discussion from resistance welding machine operator regarding pacemaker. Spoke with POLITICAL ANTHROPOLOGIST. Dr. Lau will be making rounds at noon. Tanja shared that she is not interested in Hospice. Have had discussion at [facility]. Adamantly declines comfort care/hospice. Code Status; Full Code, Full Aggressive Care per /family. will await discussion with Cardiology 1257; Dr. Lau met with Tanja. Pacemaker not needed at this time. Will need monitoring. Will discuss with POLITICAL ANTHROPOLOGIST options for monitoring through [facility] or [facility]. Palliative Care will sign off. Plan: Full code; Full Aggressive Care NICOLLE BOWDEN May 22, 2019 12:26
--- NOTE | 2019-05-22 14:40 | PDOC ---
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 Discussed with patient's who differentiates the stimulus-evoked myoclonic responses from his usual seizures and she agrees that the current episodes are not seizures. She says that he is more alert when she talks to him and indeed that is the case. Plan Continue current levetiracetam and lamotrigine doses. 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 Continue to see the neurologists at the [facility] Subjective none Objective Vital Signs Date Time Temp Pulse Resp B/P (MAP) Pulse Ox O2 Delivery O2 Flow Rate FiO2 05/22/19 11:01 96 Nasal Cannula 2.0 05/22/19 11:00 98.5 71 24 114/65 (81) 98.5 Intake and Output 05/22/19 07:00 Intake Total 750 ml Output Total 650 ml Balance 100 ml Tube Feeding 150 ml Other 600 ml Output Urine Total 650 ml PHYSICAL EXAM Eyes closed, no verbal response, does not follow commands. However, he does open his eyes when his speaks to him PERRL. No spontaneous extraocular movements CN: no focal findings. Muscle tone: spastic Muscle strength: no movement, no convulsive activity evoked DTR: 2-3+ Plantar reflex: silent Gait: not examined. Sensory exam: not cooperative Cerebellar: not cooperative Review of Relevant I have reviewed the following items josh (where applicable) has been applied. Labs Laboratory Tests Test 05/21/19 11:10 05/22/19 04:55 [id number] Natriuretic Peptide 3838 pg/mL (0-124) White Blood Count 5.9 x10^3/uL (4.0-11.0) Red Blood Count 3.82 x10^6/uL (4.30-5.70) Hemoglobin 12.0 g/dL (13.0-17.5) Hematocrit 36.1 % (39.0-53.0) Mean Corpuscular Volume 95 fL (79-100) Mean Corpuscular Hemoglobin 31 pg (25-35) Mean Corpuscular Hemoglobin Concent 33 g/dL (31-37) Red Cell Distribution Width 18.3 % (11.5-14.5) Platelet Count 233 x10^3/uL (140-400) Sodium Level 133 mmol/L (136-145) Potassium Level 4.1 mmol/L (3.5-5.1) Chloride Level 95 mmol/L (98-107) Carbon Dioxide Level 31 mmol/L (21-32) Anion Gap 7 (6-14) Blood Urea Nitrogen 28 mg/dL (8-26) Creatinine 1.4 mg/dL (0.7-1.3) Estimated GFR (Cockcroft-Gault) 60.3 BUN/Creatinine Ratio 20 (6-20) Glucose Level 101 mg/dL (70-99) Calcium Level 8.6 mg/dL (8.5-10.1) Total Bilirubin 0.5 mg/dL (0.2-1.0) Aspartate Amino Transf (AST/SGOT) 59 U/L (15-37) Alanine Aminotransferase (ALT/SGPT) 33 U/L (16-63) Alkaline Phosphatase 225 U/L (46-116) Total Protein 8.1 g/dL (6.4-8.2) Albumin 2.6 g/dL (3.4-5.0) Albumin/Globulin Ratio 0.5 (1.0-1.7) Laboratory Tests Test 05/22/19 04:55 White Blood Count 5.9 x10^3/uL (4.0-11.0) Red Blood Count 3.82 x10^6/uL (4.30-5.70) Hemoglobin 12.0 g/dL (13.0-17.5) Hematocrit 36.1 % (39.0-53.0) Mean Corpuscular Volume 95 fL (79-100) Mean Corpuscular Hemoglobin 31 pg (25-35) Mean Corpuscular Hemoglobin Concent 33 g/dL (31-37) Red Cell Distribution Width 18.3 % (11.5-14.5) Platelet Count 233 x10^3/uL (140-400) Sodium Level 133 mmol/L (136-145) Potassium Level 4.1 mmol/L (3.5-5.1) Chloride Level 95 mmol/L (98-107) Carbon Dioxide Level 31 mmol/L (21-32) Anion Gap 7 (6-14) Blood Urea Nitrogen 28 mg/dL (8-26) Creatinine 1.4 mg/dL (0.7-1.3) Estimated GFR (Cockcroft-Gault) 60.3 BUN/Creatinine Ratio 20 (6-20) Glucose Level 101 mg/dL (70-99) Calcium Level 8.6 mg/dL (8.5-10.1) Total Bilirubin 0.5 mg/dL (0.2-1.0) Aspartate Amino Transf (AST/SGOT) 59 U/L (15-37) Alanine Aminotransferase (ALT/SGPT) 33 U/L (16-63) Alkaline Phosphatase 225 U/L (46-116) Total Protein 8.1 g/dL (6.4-8.2) Albumin 2.6 g/dL (3.4-5.0) Albumin/Globulin Ratio 0.5 (1.0-1.7) Medications Current Medications Acetaminophen (Tylenol) 650 mg HS PO Last administered on 05/21/19 21:17; Start 05/20/19 at 21:00 Acetaminophen (Tylenol) 650 mg PRN Q6HRS PRN PO MILD PAIN 1-3 Last administered on 05/20/19at 11:36; Start 05/19/19 at 21:45 Atorvastatin Calcium (Lipitor) 10 mg HS PO ; Start 05/20/19 at 21:00; Status UNV Atorvastatin Calcium (Lipitor) 10 mg QHS PO Last administered on 05/21/19 21:18; Start 05/20/19 at 21:00 Docusate Sodium (Colace Solution) 200 mg DAILY PO Last administered on 05/22/19 08:20; Start 05/20/19 at 09:00 Furosemide (Lasix) 40 mg DAILY PO Last administered on 05/22/19 08:21; Start 05/20/19 at 09:00 Gabapentin (Neurontin Oral Soln) 600 mg TID PO Last administered on 05/22/19 08:23; Start 05/20/19 at 09:00 Guaifenesin (Robitussin) 100 mg PRN Q8HRS PRN PO COUGH 1ST CHOICE; Start 05/19/19 at 21:45 Loperamide HCl (Immodium Oral Susp) 2 mg PRN Q6HRS PRN PO DIARRHEA; Start 05/19/19 at 21:45 Lorazepam (Ativan) 0.5 mg PRN Q6HRS PRN PO ANXIETY / AGITATION; Start 05/19/19 at 21:45 Metoclopramide HCl (Reglan) 5 mg QIDACHS PO Last administered on 05/22/19 12:33; Start 05/20/19 at 07:30 Potassium Phos/ Sodium Phos (Phos-Nak) 2 pkt BID PO Last administered on 05/22/19 08:20; Start 05/20/19 at 09:00 Pantoprazole Sodium (Protonix) 40 mg DAILYAC PO Last administered on 05/20/19 09:21; Start 05/20/19 at 07:30; Stop 05/21/19 at 11:01; Status DC Non-Formulary Medication (Albuterol Sulfate (Albuterol Sulfate Neb Soln)) 1 vial Q6HRS NEB ; Start 05/20/19 at 00:00; Status UNV Atropine Sulfate (Isopto Atropine) 1 drop PRN Q2HRS PRN OU OPTHALMIC DILATION; Start 05/19/19 at 22:15 Artificial Tears (Artificial Tears) 1 drop QID OU Last administered on 05/22/19 12:34; Start 05/20/19 at 09:00 Non-Formulary Medication (Carboxymethylcellulos/ Glycerin (Refresh Optive Eye Drops)) 1 drop QID EACHEYE ; Start 05/20/19 at 09:00; Status UNV Vitamin D (Vitamin D3) 1,000 unit DAILY PO Last administered on 05/22/19 08:21; Start 05/20/19 at 09:00 Hydralazine HCl (Apresoline) 50 mg TID PO Last administered on 05/20/19 14:58; Start 05/19/19 at 22:30; Stop 05/20/19 at 18:07; Status DC Lactobacillus Rhamnosus (Culturelle) 1 cap BID PO Last administered on 05/22/19 08:21; Start 05/20/19 at 09:00 Non-Formulary Medication (Lactobacillus Acidophilus (Acidophilus)) 1 each DAILY PO ; Start 05/20/19 at 09:00; Status UNV Saliva Substitute (Biotene Moisturizing Mouth) 2 spray QID PO Last administered on 05/22/19 12:34; Start 05/20/19 at 09:00 Lamotrigine (LaMICtal) 200 mg BID PO Last administered on 05/22/19 08:19; Start 05/20/19 at 09:00 Levetiracetam (Keppra) 200 mg BID PEG ; Start 05/20/19 at 09:00; Stop 05/20/19 at 09:00; Status DC Cetirizine HCl (ZyrTEC) 10 mg DAILY PO Last administered on 05/22/19 08:15; Start 05/20/19 at 09:00 Al Hydroxide/Mg Hydroxide (Mylanta Plus Xs) 30 ml PRN DAILY PRN PO HEARTBURN / GAS; Start 05/19/19 at 22:00 Nystatin (Nystop) 1 alessandro BID TP Last administered on 05/22/19 08:24; Start 05/20/19 at 09:00 Nystatin (Mycostatin) 1 alessandro PRN BID PRN TP FUNGAL RASH; Start 05/20/19 at 09:00 Ondansetron HCl (Zofran Odt) 4 mg PRN BID PRN PO NAUSEA/VOMITING 1ST CHOICE; Start 05/19/19 at 22:15 Polyethylene Glycol (miraLAX PACKET) 17 gm PRN DAILY PRN PO CONSTIPATION 1ST CHOICE; Start 05/20/19 at 09:00 Potassium Bicarbonate (Potassium Effervescent Tablet) 20 meq DAILY PEG Last administered on 05/22/19at 08:20; Start 05/20/19 at 09:00 Simethicone (Gas-X) 80 mg PRN AFTMEALHC PRN PO GAS / BLOATING; Start 05/19/19 at 22:00 Spironolactone (Aldactone) 50 mg DAILY PO Last administered on 05/22/19at 08:14; Start 05/20/19 at 09:00 Enoxaparin Sodium (Lovenox Per Pharmacy Treatment Dosing) 1 each PRN DAILY PRN MC SEE COMMENTS; Start 05/19/19 at 22:00; Status Cancel Amlodipine Besylate (Norvasc) 10 mg 1X ONCE PO Last administered on 05/19/19at 22:43; Start 05/19/19 at 22:30; Stop 05/19/19 at 22:31; Status DC Hydralazine HCl (Apresoline) 50 mg TID PO ; Start 05/20/19 at 09:00; Status UNV Albuterol Sulfate (Ventolin Neb Soln) 2.5 mg RTQID NEB Last administered on 05/22/19at 11:00; Start 05/20/19 at 08:00 Enoxaparin Sodium (Lovenox 80mg Syringe) 80 mg Q12HR SQ Last administered on 05/20/19at 09:20; Start 05/19/19 at 23:00; Stop 05/21/19 at 10:50; Status DC Info (Anti-Coagulation Monitoring By Pharmacy) 1 each PRN DAILY PRN MC SEE COMMENTS Last administered on 05/20/19at 01:16; Start 05/19/19 at 22:15; Stop 05/21/19 at 11:20; Status DC Hydralazine HCl (Apresoline Inj) 10 mg 1X ONCE IVP Last administered on 05/19/19at 22:43; Start 05/19/19 at 23:00; Stop 05/19/19 at 23:01; Status DC Levetiracetam (Keppra) 1,800 mg BID PEG Last administered on 05/22/19at 08:17; Start 05/20/19 at 09:00 Aspirin (Children'S Aspirin) 81 mg DAILYWBKFT PO ; Start 05/21/19 at 08:00; Status UNV Metoprolol Tartrate (Lopressor) 25 mg BID PO Last administered on 05/20/19at 20:39; Start 05/20/19 at 21:00; Stop 05/21/19 at 10:38; Status DC Iohexol (Omnipaque 350 Mg/ml) 100 ml 1X ONCE IV Last administered on 05/20/19at 17:01; Start 05/20/19 at 17:30; Stop 05/20/19 at 17:31; Status DC Info (CONTRAST GIVEN -- Rx MONITORING) 1 each PRN DAILY PRN MC SEE COMMENTS; Start 05/20/19 at 17:15; Stop 05/22/19 at 17:14 Hydralazine HCl (Apresoline) 100 mg TID PO Last administered on 05/22/19at 08:14; Start 05/20/19 at 21:00 Hydralazine HCl (Apresoline Inj) 20 mg PRN Q4HRS PRN IVP ELEVATED BP, SEE COMMENTS Last administered on 05/20/19at 18:14; Start 05/20/19 at 18:15 Furosemide (Lasix) 40 mg 1X ONCE IVP Last administered on 05/21/19at 11:08; Start 05/21/19 at 11:00; Stop 05/21/19 at 11:01; Status DC Enoxaparin Sodium (Lovenox 40mg Syringe) 40 mg DAILY SQ Last administered on 05/22/19at 08:19; Start 05/22/19 at 09:00 Lansoprazole (Prevacid) 30 mg DAILY FT Last administered on 05/22/19at 08:14; Start 05/21/19 at 11:30 Active Scripts Active Reglan (Metoclopramide Hcl) 10 Mg Tablet 5 Mg PO QIDACHS 30 Days Reported Acetaminophen Oral Liquid (Acetaminophen) 650 Mg/20.3 Ml Solution 650 Mg PO PRN Q6HRS PRN Preparation H Ointment (Phenyleph/Mineral Oil/Petrolat) 28 Gm Oint.appl 28 Gm RC PRN BID PRN Potassium Chloride Oral Liquid (Potassium Chloride) 20 Meq/15 Ml Liquid 20 Meq PEG DAILY Lipitor (Atorvastatin Calcium) 10 Mg Tablet 1 Tab PO QHS Lasix (Furosemide) 40 Mg Tablet 1 Tab PO DAILY Acidophilus (Lactobacillus Acidophilus) 1 Each Capsule 1 Each PO DAILY Guaifenesin 100 Mg/5 Ml Liquid 100 Mg PO PRN Q8HRS PRN Refresh Optive Eye Drops (Carboxymethylcellulos/Glycerin) 15 Ml Drops 1 Drop EACHEYE QID Atropine Sulfate 2 Ml Drops 2 Ml OP PRN Q1HR Aldactone (Spironolactone) 50 Mg Tablet 1 Tab PO DAILY Acetaminophen Oral Liquid (Acetaminophen) 650 Mg/20.3 Ml Solution 650 Mg PO HS Zofran (Ondansetron Hcl) 4 Mg Tablet 4 Mg PO BID PRN Miralax (Polyethylene Glycol 3350) 17 Gm Powd.pack 1 Pkt PO PRN DAILY PRN Atorvastatin Calcium 10 Mg Tablet 10 Mg PO HS Keppra (Levetiracetam) 100 Mg/1 Ml Solution 200 Mg PEG BID Hydralazine Hcl 50 Mg Tablet 1 Tab PO TID Docu Liquid (Docusate Sodium) 50 Mg/5 Ml Liquid 20 Ml PO DAILY Phos-Nak Packet (Naph,Mb-Db/K Ph,Mbdb) 1 Each Powd.pack 2 Each PO BID Simethicone 100 Ml Liquid 40 Mg MC PRN Q6HRS PRN Pantoprazole Sodium (Pantoprazole Sodium) 40 Mg Tablet.dr 40 Mg PO DAILY Nystatin 1 Each Powder.ea. 1 Each MC BID Nystatin 15 Gm Cream..g. 1 Alessandro TP PRN BID Mag-Al Liquid (Magnesium Hydroxide/Al Hydrox) 30 Ml Oral.susp 30 Ml PO PRN DAILY PRN Lorazepam 0.5 Mg Tablet 0.5 Mg PO PRN Q6HRS PRN Lamotrigine 200 Mg Tablet 200 Mg PO BID Acidophilus Probiotic (Lactobacillus Acidophilus) 1 Mg Tablet 1 Mg PO DAILY Imodium A-D (Loperamide Hcl) 1 Mg/7.5 Ml Liquid 2 Mg PO PRN Q6HRS PRN Gabapentin Oral Solution (Gabapentin) 250 Mg/5 Ml Solution 12 Ml PO TID Claritin (Loratadine) 10 Mg Tablet 1 Tab PO DAILY Vitamin D3 (Cholecalciferol (Vitamin D3)) 1,000 Unit Tab.chew 1,000 Unit PO DAILY Lubricant 0.5-0.9% Eye Drops (Carboxymethylcell/Glycerin/Pf) 1 Each Droperette 1 Each OP [id number] Biotene Oralbalance Gel (Lactoperoxi/Gluc Oxid/Pot Thio) 42 Gm Gel..gram. 42 Gm MM QID Albuterol Sulfate Neb Soln (Albuterol Sulfate) 1.25 Mg/3 Ml Vial.neb 1 Vial NEB Q6HRS Vitals/I & O Vital Sign - Last 24 Hours 05/21/19 05/21/19 05/21/19 05/21/19 15:00 16:05 19:52 20:00 Temp 98.5 98.7 98.5 98.7 Pulse 68 59 Resp 16 19 B/P (MAP) 162/66 (98) 131/57 (81) Pulse Ox 97 99 94 O2 Delivery Nasal Cannula Nasal Cannula Nasal Cannula Nasal Cannula O2 Flow Rate 3.0 3.0 2.0 3.0 05/21/19 05/21/19 05/21/19 05/22/19 20:09 21:18 23:27 03:20 Temp 98.7 99.0 98.7 99.0 Pulse 59 68 67 Resp 20 18 B/P (MAP) 131/57 136/71 (92) 150/56 (87) Pulse Ox 97 100 100 O2 Delivery Nasal Cannula Nasal Cannula Nasal Cannula O2 Flow Rate 3.0 2.0 2.0 05/22/19 05/22/19 05/22/19 05/22/19 07:00 07:41 08:00 08:14 Temp 98.7 98.7 Pulse 77 77 Resp 24 B/P (MAP) 151/81 (104) 151/81 Pulse Ox 100 99 O2 Delivery Nasal Cannula Nasal Cannula Nasal Cannula O2 Flow Rate 2.0 3.0 3.0 05/22/19 05/22/19 11:00 11:01 Temp 98.5 98.5 Pulse 71 Resp 24 B/P (MAP) 114/65 (81) Pulse Ox 93 96 O2 Delivery Nasal Cannula Nasal Cannula O2 Flow Rate 3.0 2.0 Intake and Output 05/21/19 05/21/19 05/22/19 15:00 23:00 07:00 Intake Total 750 ml Output Total 250 ml 400 ml Balance -250 ml 750 ml -400 ml YENY AGUILAR MD May 22, 2019 14:40
[2019-05-22 15:00] VITALS: BP 148/85
--- NOTE | 2019-05-22 16:40 | PDOC ---
CARDIO Progress Notes Date and Time Date of Service 05/22/2019 Time of Evaluation 1620 Subjective Subjective: Other (nonresponsive) Vitals Vitals Vital Signs Date Time Temp Pulse Resp B/P (MAP) Pulse Ox O2 Delivery O2 Flow Rate FiO2 05/22/19 15:00 98.9 68 24 148/85 (106) 95 Nasal Cannula 2.0 98.9 Weight Weight [ ] Input and Output Intake and Output Intake and Output 05/22/19 07:00 Intake Total 750 ml Output Total 650 ml Balance 100 ml Tube Feeding 150 ml Other 600 ml Output Urine Total 650 ml Laboratory Labs Laboratory Tests Test 05/22/19 04:55 White Blood Count 5.9 x10^3/uL (4.0-11.0) Red Blood Count 3.82 x10^6/uL (4.30-5.70) Hemoglobin 12.0 g/dL (13.0-17.5) Hematocrit 36.1 % (39.0-53.0) Mean Corpuscular Volume 95 fL (79-100) Mean Corpuscular Hemoglobin 31 pg (25-35) Mean Corpuscular Hemoglobin Concent 33 g/dL (31-37) Red Cell Distribution Width 18.3 % (11.5-14.5) Platelet Count 233 x10^3/uL (140-400) Sodium Level 133 mmol/L (136-145) Potassium Level 4.1 mmol/L (3.5-5.1) Chloride Level 95 mmol/L (98-107) Carbon Dioxide Level 31 mmol/L (21-32) Anion Gap 7 (6-14) Blood Urea Nitrogen 28 mg/dL (8-26) Creatinine 1.4 mg/dL (0.7-1.3) Estimated GFR (Cockcroft-Gault) 60.3 BUN/Creatinine Ratio 20 (6-20) Glucose Level 101 mg/dL (70-99) Calcium Level 8.6 mg/dL (8.5-10.1) Total Bilirubin 0.5 mg/dL (0.2-1.0) Aspartate Amino Transf (AST/SGOT) 59 U/L (15-37) Alanine Aminotransferase (ALT/SGPT) 33 U/L (16-63) Alkaline Phosphatase 225 U/L (46-116) Total Protein 8.1 g/dL (6.4-8.2) Albumin 2.6 g/dL (3.4-5.0) Albumin/Globulin Ratio 0.5 (1.0-1.7) Physical Exam HEENT: Neck Supple W Full Motion Chest: Symmetric LUNGS: Other (bibasilar crackles ) Heart: S1S2, RRR (SR with first degree AV block and mobitz type 2 with 2:1 conduction) Abdomen: Soft N/T Extremities: No Edema Neurology: other (non-responsive ) Assessment Assessment 1. Acute hypoxic respiratory failure 2. Acute on chronic diastolic CHF; Echo has LVEF 55-60%. appears compensated 3. PAFIB: now SR 4. Possible SSS: currently SR with first degree AV block with morbitz type 2 with 2:1 conduction, no pauses. 4. Elevated troponin; highest 0.303, possibly demand mediated 5. Hyperlipidemia; statin 6. Hypertension; mildly elevated 7. Elevated d-dimer; CTA when IV access is obtained. 8. H/o CVA with aphasia, quadriparesis 9. Dementia 10. Seizures; Keppra resumed 11. Contractures/debility 12. ASA allergy 13. MIHAI: Cr at 1.4 post contrast 05/20 Recommendations 1. Discontinue BB. Avoid AV jocelyne blocking agents. Caution with QT prolonging agents 2. PCXR. Continue with TF at 70 ml/hr. Stop aldactone 3. Remains with aggressive measures. 4. Would favor conservative measures significant comorbidities significant debility, and contractures. 5. Would need [facility] to further ascertain AFIB burden and any block progression or any pauses that would warrant PPM. WHIT MCLAIN APRN May 22, 2019 16:40
[2019-05-22 19:15] VITALS: BP 176/80
[2019-05-22] MEDS: ACETAMINOPHEN 650 MG/20.3 ML SOLUTION. PO SCH (21:01)
[2019-05-22] MEDS: ATORVASTATIN CALCIUM 10 MG TABLET. PO SCH (21:02)
[2019-05-22] MEDS ORDERED: FUROSEMIDE 40 MG/4 ML VIAL. IVP ONE (22:00)
--- NOTE | 2019-05-22 22:53 | NUR ---
At 2230 patients eyes rolling back and frequently blinking, moaning, and tremors of both hands. Administered prn lorazepam.
[2019-05-22 23:21] VITALS: BP 140/72
[2019-05-23 03:53] VITALS: BP 144/72
[2019-05-23 05:38] LABS: CALCIUM 8.2 mg/dL (8.5-10.1); CREATININE 1.2 mg/dL (0.7-1.3)
[2019-05-23 07:00] VITALS: BP 188/85
[2019-05-23] MEDS: ALBUTEROL SULFATE 2.5 MG/3 ML NEBU. NEB SCH ×3 (07:23→15:12)
[2019-05-23] MEDS: lamoTRIgine 100 MG TABLET. PO SCH (08:51)
[2019-05-23] MEDS: LANSOPRAZOLE 30 MG TAB.RAP.DR FT SCH (08:51)
[2019-05-23] MEDS: METOCLOPRAMIDE 5 MG TABLET. PO SCH ×2 (08:51→11:15)
[2019-05-23] MEDS: ENOXAPARIN 40 MG/0.4 ML SYRINGE. SQ SCH (08:51)
[2019-05-23] MEDS: LACTOBACILLUS RHAMNOSUS GG 1 CAPSULE. PO SCH (08:52)
[2019-05-23] MEDS: POTASSIUM BICARB 20 MEQ EFFERVESCENT TABLET. PEG SCH (08:52)
[2019-05-23] MEDS: CHOLECALCIFEROL (VITAMIN D3) 1,000 UNIT TABLET PO SCH (08:52)
[2019-05-23] MEDS: CETIRIZINE HCL 10 MG TABLET. PO SCH (08:52)
[2019-05-23] MEDS: POTASSIUM & SODIUM PHOSPHATES PACKET. PO SCH (08:52)
[2019-05-23] MEDS: NYSTATIN TOPICAL POWDER 15GM BOTTLE. TP SCH (08:53)
[2019-05-23] MEDS: SALIVA STIMULANT AGENT 44ML SPRAY BOTTLE. PO SCH ×2 (08:54→11:16)
[2019-05-23] MEDS: POLYVINYL ALCOHOL 1.4% OPHTH SOLUTION 15ML BOTTLE. OU SCH ×2 (08:54→11:16)
[2019-05-23] MEDS: FUROSEMIDE 40 MG TABLET. PO SCH (08:55)
[2019-05-23] MEDS: DOCUSATE 100 MG/10 ML SOLUTION. PO SCH (09:02)
[2019-05-23] MEDS: GABAPENTIN 250 MG/5 ML ORAL SOLUTION. PO SCH ×2 (09:04→13:42)
--- NOTE | 2019-05-23 09:13 | PDOC ---
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 Discussed with patient's who differentiates the stimulus-evoked myoclonic responses from his usual seizures and she agrees that the current episodes are not seizures. She says that he is more alert when she talks to him and indeed that is the case. Plan Continue current levetiracetam and lamotrigine doses. Hold on EEG, won't change director. Continue to see the neurologists at the [facility] Subjective None Objective Vital Signs Date Time Temp Pulse Resp B/P (MAP) Pulse Ox O2 Delivery O2 Flow Rate FiO2 05/23/19 07:24 96 Nasal Cannula 2.0 05/23/19 07:00 99.1 70 20 188/85 (119) 99.1 Intake and Output 05/23/19 06:59 Intake Total 752 ml Output Total 950 ml Balance -198 ml Tube Feeding 752 ml Output Urine Total 950 ml PHYSICAL EXAM Eyes closed, looks at and smiles at observer, but no verbal response, does not follow commands. PERRL. EOMI CN: no focal findings. Muscle tone: spastic Muscle strength: no movement, no convulsive activity evoked DTR: 2-3+ Plantar reflex: silent Gait: not examined. Sensory exam: not cooperative Cerebellar: not cooperative Review of Relevant I have reviewed the following items josh (where applicable) has been applied. Labs Laboratory Tests Test 05/21/19 11:10 05/22/19 04:55 05/23/19 04:30 JH-Cwh-C-Type Natriuretic Peptide 3838 pg/mL (0-124) White Blood Count 5.9 x10^3/uL (4.0-11.0) Red Blood Count 3.82 x10^6/uL (4.30-5.70) Hemoglobin 12.0 g/dL (13.0-17.5) Hematocrit 36.1 % (39.0-53.0) Mean Corpuscular Volume 95 fL (79-100) Mean Corpuscular Hemoglobin 31 pg (25-35) Mean Corpuscular Hemoglobin Concent 33 g/dL (31-37) Red Cell Distribution Width 18.3 % (11.5-14.5) Platelet Count 233 x10^3/uL (140-400) Sodium Level 133 mmol/L (136-145) 134 mmol/L (136-145) Potassium Level 4.1 mmol/L (3.5-5.1) 4.0 mmol/L (3.5-5.1) Chloride Level 95 mmol/L (98-107) 95 mmol/L (98-107) Carbon Dioxide Level 31 mmol/L (21-32) 33 mmol/L (21-32) Anion Gap 7 (6-14) 6 (6-14) Blood Urea Nitrogen 28 mg/dL (8-26) 26 mg/dL (8-26) Creatinine 1.4 mg/dL (0.7-1.3) 1.2 mg/dL (0.7-1.3) Estimated GFR (Cockcroft-Gault) 60.3 72.0 BUN/Creatinine Ratio 20 (6-20) Glucose Level 101 mg/dL (70-99) 116 mg/dL (70-99) Calcium Level 8.6 mg/dL (8.5-10.1) 8.2 mg/dL (8.5-10.1) Total Bilirubin 0.5 mg/dL (0.2-1.0) Aspartate Amino Transf (AST/SGOT) 59 U/L (15-37) Alanine Aminotransferase (ALT/SGPT) 33 U/L (16-63) Alkaline Phosphatase 225 U/L (46-116) Total Protein 8.1 g/dL (6.4-8.2) Albumin 2.6 g/dL (3.4-5.0) Albumin/Globulin Ratio 0.5 (1.0-1.7) Laboratory Tests Test 05/23/19 04:30 Sodium Level 134 mmol/L (136-145) Potassium Level 4.0 mmol/L (3.5-5.1) Chloride Level 95 mmol/L (98-107) Carbon Dioxide Level 33 mmol/L (21-32) Anion Gap 6 (6-14) Blood Urea Nitrogen 26 mg/dL (8-26) Creatinine 1.2 mg/dL (0.7-1.3) Estimated GFR (Cockcroft-Gault) 72.0 Glucose Level 116 mg/dL (70-99) Calcium Level 8.2 mg/dL (8.5-10.1) Medications Current Medications Acetaminophen (Tylenol) 650 mg HS PO Last administered on 05/22/19 21:01; Start 05/20/19 at 21:00 Acetaminophen (Tylenol) 650 mg PRN Q6HRS PRN PO MILD PAIN 1-3 Last administered on 05/20/19 11:36; Start 05/19/19 at 21:45 Atorvastatin Calcium (Lipitor) 10 mg HS PO ; Start 05/20/19 at 21:00; Status UNV Atorvastatin Calcium (Lipitor) 10 mg QHS PO Last administered on 05/22/19 21:02; Start 05/20/19 at 21:00 Docusate Sodium (Colace Solution) 200 mg DAILY PO Last administered on 05/22/19 08:20; Start 05/20/19 at 09:00 Furosemide (Lasix) 40 mg DAILY PO Last administered on 05/22/19 08:21; Start 05/20/19 at 09:00 Gabapentin (Neurontin Oral Soln) 600 mg TID PO Last administered on 05/22/19 21:04; Start 05/20/19 at 09:00 Guaifenesin (Robitussin) 100 mg PRN Q8HRS PRN PO COUGH 1ST CHOICE; Start 05/19/19 at 21:45 Loperamide HCl (Immodium Oral Susp) 2 mg PRN Q6HRS PRN PO DIARRHEA; Start 05/19/19 at 21:45 Lorazepam (Ativan) 0.5 mg PRN Q6HRS PRN PO ANXIETY / AGITATION Last administered on 05/22/19 22:48; Start 05/19/19 at 21:45 Metoclopramide HCl (Reglan) 5 mg QIDACHS PO Last administered on 05/22/19 21:00; Start 05/20/19 at 07:30 Potassium Phos/ Sodium Phos (Phos-Nak) 2 pkt BID PO Last administered on 05/22/19 21:02; Start 05/20/19 at 09:00 Pantoprazole Sodium (Protonix) 40 mg DAILYAC PO Last administered on 7/23/19at 09:21; Start 05/20/19 at 07:30; Stop 05/21/19 at 11:01; Status DC Non-Formulary Medication (Albuterol Sulfate (Albuterol Sulfate Neb Soln)) 1 vial Q6HRS NEB ; Start 05/20/19 at 00:00; Status UNV Atropine Sulfate (Isopto Atropine) 1 drop PRN Q2HRS PRN OU OPTHALMIC DILATION; Start 05/19/19 at 22:15 Artificial Tears (Artificial Tears) 1 drop QID OU Last administered on 05/22/19 21:01; Start 05/20/19 at 09:00 Non-Formulary Medication (Carboxymethylcellulos/ Glycerin (Refresh Optive Eye Drops)) 1 drop QID EACHEYE ; Start 05/20/19 at 09:00; Status UNV Vitamin D (Vitamin D3) 1,000 unit DAILY PO Last administered on 05/22/19 08:21; Start 05/20/19 at 09:00 Hydralazine HCl (Apresoline) 50 mg TID PO Last administered on 05/20/19 14:58; Start 05/19/19 at 22:30; Stop 05/20/19 at 18:07; Status DC Lactobacillus Rhamnosus (Culturelle) 1 cap BID PO Last administered on 05/22/19 21:02; Start 05/20/19 at 09:00 Non-Formulary Medication (Lactobacillus Acidophilus (Acidophilus)) 1 each DAILY PO ; Start 05/20/19 at 09:00; Status UNV Saliva Substitute (Biotene Moisturizing Mouth) 2 spray QID PO Last administered on 05/22/19 21:01; Start 05/20/19 at 09:00 Lamotrigine (LaMICtal) 200 mg BID PO Last administered on 05/22/19 21:02; Start 05/20/19 at 09:00 Levetiracetam (Keppra) 200 mg BID PEG ; Start 05/20/19 at 09:00; Stop 05/20/19 at 09:00; Status DC Cetirizine HCl (ZyrTEC) 10 mg DAILY PO Last administered on 05/22/19 08:15; Start 05/20/19 at 09:00 Al Hydroxide/Mg Hydroxide (Mylanta Plus Xs) 30 ml PRN DAILY PRN PO HEARTBURN / GAS; Start 05/19/19 at 22:00 Nystatin (Nystop) 1 alessandro BID TP Last administered on 05/22/19at 21:04; Start 05/20/19 at 09:00 Nystatin (Mycostatin) 1 alessandro PRN BID PRN TP FUNGAL RASH; Start 05/20/19 at 09:00 Ondansetron HCl (Zofran Odt) 4 mg PRN BID PRN PO NAUSEA/VOMITING 1ST CHOICE; Start 05/19/19 at 22:15 Polyethylene Glycol (miraLAX PACKET) 17 gm PRN DAILY PRN PO CONSTIPATION 1ST CHOICE; Start 05/20/19 at 09:00 Potassium Bicarbonate (Potassium Effervescent Tablet) 20 meq DAILY PEG Last administered on 05/22/19at 08:20; Start 05/20/19 at 09:00 Simethicone (Gas-X) 80 mg PRN AFTMEALHC PRN PO GAS / BLOATING; Start 05/19/19 at 22:00 Spironolactone (Aldactone) 50 mg DAILY PO Last administered on 05/22/19at 08:14; Start 05/20/19 at 09:00; Stop 05/22/19 at 16:38; Status DC Enoxaparin Sodium (Lovenox Per Pharmacy Treatment Dosing) 1 each PRN DAILY PRN MC SEE COMMENTS; Start 05/19/19 at 22:00; Status Cancel Amlodipine Besylate (Norvasc) 10 mg 1X ONCE PO Last administered on 05/19/19at 22:43; Start 05/19/19 at 22:30; Stop 05/19/19 at 22:31; Status DC Hydralazine HCl (Apresoline) 50 mg TID PO ; Start 05/20/19 at 09:00; Status UNV Albuterol Sulfate (Ventolin Neb Soln) 2.5 mg RTQID NEB Last administered on at 07:23; Start 05/20/19 at 08:00 Enoxaparin Sodium (Lovenox 80mg Syringe) 80 mg Q12HR SQ Last administered on 05/20/19at 09:20; Start 05/19/19 at 23:00; Stop 05/21/19 at 10:50; Status DC Info (Anti-Coagulation Monitoring By Pharmacy) 1 each PRN DAILY PRN MC SEE COMMENTS Last administered on 05/20/19at 01:16; Start 05/19/19 at 22:15; Stop 05/21/19 at 11:20; Status DC Hydralazine HCl (Apresoline Inj) 10 mg 1X ONCE IVP Last administered on 05/19/19at 22:43; Start 05/19/19 at 23:00; Stop 05/19/19 at 23:01; Status DC Levetiracetam (Keppra) 1,800 mg BID PEG Last administered on 05/22/19at 21:03; Start 05/20/19 at 09:00 Aspirin (Children'S Aspirin) 81 mg DAILYWBKFT PO ; Start 05/21/19 at 08:00; Status UNV Metoprolol Tartrate (Lopressor) 25 mg BID PO Last administered on 05/20/19at 20:39; Start 05/20/19 at 21:00; Stop 05/21/19 at 10:38; Status DC Iohexol (Omnipaque 350 Mg/ml) 100 ml 1X ONCE IV Last administered on 05/20/19at 17:01; Start 05/20/19 at 17:30; Stop 05/20/19 at 17:31; Status DC Info (CONTRAST GIVEN -- Rx MONITORING) 1 each PRN DAILY PRN MC SEE COMMENTS; Start 05/20/19 at 17:15; Stop 05/22/19 at 17:14; Status DC Hydralazine HCl (Apresoline) 100 mg TID PO Last administered on 05/22/19at 21:03; Start 05/20/19 at 21:00 Hydralazine HCl (Apresoline Inj) 20 mg PRN Q4HRS PRN IVP ELEVATED BP, SEE COMMENTS Last administered on 05/20/19at 18:14; Start 05/20/19 at 18:15 Furosemide (Lasix) 40 mg 1X ONCE IVP Last administered on 05/21/19at 11:08; Start 05/21/19 at 11:00; Stop 05/21/19 at 11:01; Status DC Enoxaparin Sodium (Lovenox 40mg Syringe) 40 mg DAILY SQ Last administered on 05/22/19at 08:19; Start 05/22/19 at 09:00 Lansoprazole (Prevacid) 30 mg DAILY FT Last administered on 05/22/19at 08:14; Start 05/21/19 at 11:30 Furosemide (Lasix) 40 mg 1X ONCE IVP Last administered on 05/22/19at 22:27; Start 05/22/19 at 22:00; Stop 05/22/19 at 22:01; Status DC Active Scripts Active Reglan (Metoclopramide Hcl) 10 Mg Tablet 5 Mg PO QIDACHS 30 Days Reported Acetaminophen Oral Liquid (Acetaminophen) 650 Mg/20.3 Ml Solution 650 Mg PO PRN Q6HRS PRN Preparation H Ointment (Phenyleph/Mineral Oil/Petrolat) 28 Gm Oint.appl 28 Gm RC PRN BID PRN Potassium Chloride Oral Liquid (Potassium Chloride) 20 Meq/15 Ml Liquid 20 Meq PEG DAILY Lipitor (Atorvastatin Calcium) 10 Mg Tablet 1 Tab PO QHS Lasix (Furosemide) 40 Mg Tablet 1 Tab PO DAILY Acidophilus (Lactobacillus Acidophilus) 1 Each Capsule 1 Each PO DAILY Guaifenesin 100 Mg/5 Ml Liquid 100 Mg PO PRN Q8HRS PRN Refresh Optive Eye Drops (Carboxymethylcellulos/Glycerin) 15 Ml Drops 1 Drop EACHEYE QID Atropine Sulfate 2 Ml Drops 2 Ml OP PRN Q1HR Aldactone (Spironolactone) 50 Mg Tablet 1 Tab PO DAILY Acetaminophen Oral Liquid (Acetaminophen) 650 Mg/20.3 Ml Solution 650 Mg PO HS Zofran (Ondansetron Hcl) 4 Mg Tablet 4 Mg PO BID PRN Miralax (Polyethylene Glycol 3350) 17 Gm Powd.pack 1 Pkt PO PRN DAILY PRN Atorvastatin Calcium 10 Mg Tablet 10 Mg PO HS Keppra (Levetiracetam) 100 Mg/1 Ml Solution 200 Mg PEG BID Hydralazine Hcl 50 Mg Tablet 1 Tab PO TID Docu Liquid (Docusate Sodium) 50 Mg/5 Ml Liquid 20 Ml PO DAILY Phos-Nak Packet (Naph,Mb-Db/K Ph,Mbdb) 1 Each Powd.pack 2 Each PO BID Simethicone 100 Ml Liquid 40 Mg MC PRN Q6HRS PRN Pantoprazole Sodium (Pantoprazole Sodium) 40 Mg Tablet.dr 40 Mg PO DAILY Nystatin 1 Each Powder.ea. 1 Each MC BID Nystatin 15 Gm Cream..g. 1 Alessandro TP PRN BID Mag-Al Liquid (Magnesium Hydroxide/Al Hydrox) 30 Ml Oral.susp 30 Ml PO PRN DAILY PRN Lorazepam 0.5 Mg Tablet 0.5 Mg PO PRN Q6HRS PRN Lamotrigine 200 Mg Tablet 200 Mg PO BID Acidophilus Probiotic (Lactobacillus Acidophilus) 1 Mg Tablet 1 Mg PO DAILY Imodium A-D (Loperamide Hcl) 1 Mg/7.5 Ml Liquid 2 Mg PO PRN Q6HRS PRN Gabapentin Oral Solution (Gabapentin) 250 Mg/5 Ml Solution 12 Ml PO TID Claritin (Loratadine) 10 Mg Tablet 1 Tab PO DAILY Vitamin D3 (Cholecalciferol (Vitamin D3)) 1,000 Unit Tab.chew 1,000 Unit PO DAILY Lubricant 0.5-0.9% Eye Drops (Carboxymethylcell/Glycerin/Pf) 1 Each Droperette 1 Each OP [id number] Biotene Oralbalance Gel (Lactoperoxi/Gluc Oxid/Pot Thio) 42 Gm Gel..gram. 42 Gm MM QID Albuterol Sulfate Neb Soln (Albuterol Sulfate) 1.25 Mg/3 Ml Vial.neb 1 Vial NEB Q6HRS Vitals/I & O Vital Sign - Last 24 Hours 05/22/19 05/22/19 05/22/19 05/22/19 11:00 11:01 14:32 14:50 Temp 98.5 98.5 Pulse 71 71 Resp 24 B/P (MAP) 114/65 (81) 114/65 Pulse Ox 93 96 95 O2 Delivery Nasal Cannula Nasal Cannula Nasal Cannula O2 Flow Rate 3.0 2.0 2.0 05/22/19 05/22/19 05/22/19 05/22/19 15:00 19:15 19:30 20:12 Temp 98.9 99.6 98.9 99.6 Pulse 68 69 Resp 24 17 B/P (MAP) 148/85 (106) 176/80 (112) Pulse Ox 95 96 95 O2 Delivery Nasal Cannula Nasal Cannula Nasal Cannula Nasal Cannula O2 Flow Rate 2.0 2.0 2.0 2.0 05/22/19 05/22/19 05/23/19 05/23/19 21:03 23:21 03:53 07:00 Temp 99.3 99.0 99.1 99.3 99.0 99.1 Pulse 69 81 65 70 Resp 20 20 20 B/P (MAP) 176/80 140/72 (94) 144/72 (96) 188/85 (119) Pulse Ox 92 98 96 O2 Delivery Nasal Cannula Nasal Cannula Nasal Cannula O2 Flow Rate 2.0 2.0 2.0 05/23/19 07:24 Pulse Ox 96 O2 Delivery Nasal Cannula O2 Flow Rate 2.0 Intake and Output 05/22/19 05/22/19 05/23/19 14:59 22:59 06:59 Intake Total 752 ml Output Total 950 ml Balance -198 ml YENY AGUILAR MD May 23, 2019 09:13
--- NOTE | 2019-05-23 10:25 | RAD ---
CHEST AP ONLY Clinical Indication: CHF Comparison: 05/20/2019 AP view of the chest. Findings: Portable upright frontal view of the chest was obtained. Right internal jugular catheter is overlying the superior cavoatrial junction. Positioning of the patient's chin obscures evaluation of the lung apices. No large pneumothorax is identified on this limited exam. Cardiomediastinal silhouette is normal. Mild pulmonary vasculature congestion and interstitial edema are similar mildly improved. No pleural effusion is appreciated. No acute bone abnormality. IMPRESSION: Decreased pulmonary vasculature congestion.. Electronically signed by: Joe Westbrook MD (05/23/2019 10:22 AM) [id number]
[2019-05-23 11:00] VITALS: BP 199/95
[2019-05-23] MEDS: hydrALAZINE 20 MG/ML VIAL. IVP PRN (11:16)
[2019-05-23] MEDS ORDERED: amLODIPine BESYLATE 5 MG TABLET PO ONE (11:30)
--- NOTE | 2019-05-23 11:30 | PDOC ---
CARDIO Progress Notes Date and Time Date of Service 05/23/2019 Time of Evaluation 1120 Subjective Subjective: Other (nonresponsive) Vitals Vitals Vital Signs Date Time Temp Pulse Resp B/P (MAP) Pulse Ox O2 Delivery O2 Flow Rate FiO2 05/23/19 11:16 77 199/95 05/23/19 11:00 99.1 20 97 Nasal Cannula 2.0 99.1 Weight Weight [ ] Input and Output Intake and Output Intake and Output 05/23/19 07:00 Intake Total 752 ml Output Total 950 ml Balance -198 ml Tube Feeding 752 ml Output Urine Total 950 ml Laboratory Labs Laboratory Tests Test 05/23/19 04:30 Sodium Level 134 mmol/L (136-145) Potassium Level 4.0 mmol/L (3.5-5.1) Chloride Level 95 mmol/L (98-107) Carbon Dioxide Level 33 mmol/L (21-32) Anion Gap 6 (6-14) Blood Urea Nitrogen 26 mg/dL (8-26) Creatinine 1.2 mg/dL (0.7-1.3) Estimated GFR (Cockcroft-Gault) 72.0 Glucose Level 116 mg/dL (70-99) Calcium Level 8.2 mg/dL (8.5-10.1) Physical Exam HEENT: Neck Supple W Full Motion Chest: Symmetric LUNGS: Other (bibasilar crackles ) Heart: S1S2, RRR (Wenkebach) Abdomen: Soft N/T Extremities: No Edema Neurology: other (non-responsive ) Assessment Assessment 1. Acute hypoxic respiratory failure 2. Acute on chronic diastolic CHF; Echo has LVEF 55-60%. appears compensated 3. PAFIB: now SR with Wenkebach 3:2 4. Possible SSS: His rhythm yesterday was possibly 2:1 Wenkebach rather than type 2 mobitz. . No pauses 4. Elevated troponin; highest 0.303, possibly demand mediated 5. Hyperlipidemia; statin 6. Hypertension; mildly elevated 7. Elevated d-dimer; CTA when IV access is obtained. 8. H/o CVA with aphasia, quadriparesis 9. Dementia 10. Seizures; Keppra resumed 11. Contractures/debility 12. ASA allergy 13. MIHAI: due to CHF. better after lasix therapy Recommendations 1. Avoid AV jocelyne blocking agents. Caution with QT prolonging agents 2. Stop aldactone. Lasix therapy. 3. Remains with aggressive measures per family. 4. Would favor conservative measures significant comorbidities significant debility, and contractures. 5. Would need [facility] to further ascertain AFIB burden and any block progression or any pauses that would warrant PPM. 6. Follow up with [facility] WHIT MCLAIN APRN May 23, 2019 11:30
[2019-05-23] MEDS ORDERED: HYDR100T24 PO (13:29)
[2019-05-23] MEDS ORDERED: LEVE100020 PO (13:29)
--- NOTE | 2019-05-23 13:31 | SNU/HH DC ---
DISCHARGE ORDERS DISCHARGE INFORMATION: DISCHARGE DATE: May 23, 2019 FINAL DIAGNOSIS Problems Medical Problems: (1) Acute on chronic diastolic heart failure Status: Acute (2) Acute respiratory failure with hypoxia Status: Acute (3) Seizure Status: Acute CONDITION ON DISCHARGE: Stable CODE STATUS: Code Status: Full RESIDENTIAL: SNF STAY <30 DAYS: No POST DISCHARGE ORDERS: ACTIVITY ORDERS: Other, see below WEIGHT BEARING STATUS: Non weight bearing DIET AFTER DISCHARGE: NPO WOUND/INCISION CARE: No wound care needed TREATMENT/EQUIPMENT ORDERS: ADAPTIVE EQUIPMENT NEEDED: None Physical Therapy For: Evalulation/Treatment Occupational Therapy For: Evaluation/Treatment DISCHARGE MEDICATIONS: Home Meds Active Scripts Levetiracetam (KEPPRA) 1,000 Mg Tablet, 1800 MG PO BID for 0 for 30 Days, #660 TAB Prov:GABRIEL YOST MD 05/23/19 Hydralazine Hcl (HYDRALAZINE HCL) 100 Mg Tablet, 1 TAB PO TID for htn, #90 TAB 5 Refills Prov:GABRIEL YOST MD 05/23/19 Metoclopramide Hcl (REGLAN) 10 Mg Tablet, 5 MG PO QIDACHS for gastroparesis for 30 Days, #60 TAB 0 Refills Prov:GABRIEL YOST MD 12/02/18 Reported Medications Acetaminophen (ACETAMINOPHEN ORAL LIQUID ) 650 Mg/20.3 Ml Solution, 650 MG PO PRN Q6HRS PRN for PAIN, ML 05/19/19 Phenyleph/Mineral Oil/Petrolat (PREPARATION H OINTMENT) 28 Gm Oint.appl, 28 GM RC PRN BID PRN for prn , MISC 05/19/19 Potassium Chloride (POTASSIUM CHLORIDE ORAL LIQUID) 20 Meq/15 Ml Liquid, 20 MEQ PEG DAILY for chf, LIQUID 05/19/19 Atorvastatin Calcium (LIPITOR) 10 Mg Tablet, 1 TAB PO QHS for hyperlipdemia, #90 TAB 1 Refill 05/19/19 Furosemide (LASIX) 40 Mg Tablet, 1 TAB PO DAILY for diuretic, #90 TAB 1 Refill 05/19/19 Lactobacillus Acidophilus (ACIDOPHILUS) 1 Each Capsule, 1 EACH PO DAILY for gastritis, CAP 05/19/19 Guaifenesin (GUAIFENESIN) 100 Mg/5 Ml Liquid, 100 MG PO PRN Q8HRS PRN for prn, LIQUID 05/19/19 Carboxymethylcellulos/Glycerin (REFRESH OPTIVE EYE DROPS) 15 Ml Drops, 1 DROP EACHEYE QID for dry eyes, #30 ML 6 Refills 05/19/19 Atropine Sulfate (Atropine Sulfate) 2 Ml Drops, 2 ML OP PRN Q1HR for secretions, DROP 05/19/19 Spironolactone (ALDACTONE) 50 Mg Tablet, 1 TAB PO DAILY for heart failure, #30 TAB 3 Refills 05/19/19 Acetaminophen (ACETAMINOPHEN ORAL LIQUID ) 650 Mg/20.3 Ml Solution, 650 MG PO HS for pain, ML 05/19/19 Ondansetron Hcl (ZOFRAN) 4 Mg Tablet, 4 MG PO BID PRN for NAUSEA/VOMITING, TAB 11/29/18 Polyethylene Glycol 3350 (MIRALAX) 17 Gm Powd.pack, 1 PKT PO PRN DAILY PRN for CONSTIPATION, PKT 11/29/18 Hydralazine Hcl (HYDRALAZINE HCL) 50 Mg Tablet, 1 TAB PO TID for htn, #270 TAB 3 Refills 11/29/18 Docusate Sodium (DOCU LIQUID) 50 Mg/5 Ml Liquid, 20 ML PO DAILY for constipation, LIQUID 11/29/18 Naph,Mb-Db/K Ph,Mbdb (PHOS-NAK PACKET) 1 Each Powd.pack, 2 EACH PO BID 08/14/16 Simethicone (SIMETHICONE) 100 Ml Liquid, 40 MG MC PRN Q6HRS PRN for INDIGESTION, LIQUID 08/14/16 Pantoprazole Sodium (PANTOPRAZOLE SODIUM ) 40 Mg Tablet.dr, 40 MG PO DAILY, TAB 08/14/16 Nystatin (NYSTATIN) 1 Each Powder.ea., 1 EACH MC BID 08/14/16 Nystatin (NYSTATIN) 15 Gm Cream..g., 1 CLAUDIA TP PRN BID, #30 GM 08/14/16 Magnesium Hydroxide/Al Hydrox (MAG-AL LIQUID) 30 Ml Oral.susp, 30 ML PO PRN DAILY PRN for HEARTBURN / GAS 08/14/16 Lorazepam (LORAZEPAM) 0.5 Mg Tablet, 0.5 MG PO PRN Q6HRS PRN for SEIZURES, TAB 08/14/16 Lamotrigine (LAMOTRIGINE) 200 Mg Tablet, 200 MG PO BID, TAB 08/14/16 Lactobacillus Acidophilus (ACIDOPHILUS PROBIOTIC) 1 Mg Tablet, 1 MG PO DAILY 08/14/16 Loperamide Hcl (IMODIUM A-D) 1 Mg/7.5 Ml Liquid, 2 MG PO PRN Q6HRS PRN for DIARRHEA, LIQUID 08/14/16 Gabapentin (GABAPENTIN ORAL SOLUTION) 250 Mg/5 Ml Solution, 12 ML PO TID for epilepsy, ML 08/14/16 Loratadine (CLARITIN) 10 Mg Tablet, 1 TAB PO DAILY, #30 TAB 5 Refills 08/14/16 Cholecalciferol (Vitamin D3) (VITAMIN D3) 1,000 Unit Tab.chew, 1000 UNIT PO DAILY for supplement, TAB.CHEW 08/14/16 Carboxymethylcell/Glycerin/Pf (Lubricant 0.5-0.9% Eye Drops) 1 Each Droperette, 1 EACH OP [id number] 08/14/16 Lactoperoxi/Gluc Oxid/Pot Thio (BIOTENE ORALBALANCE GEL) 42 Gm Gel..gram., 42 GM MM QID 08/14/16 Albuterol Sulfate (ALBUTEROL SULFATE NEB SOLN) 1.25 Mg/3 Ml Vial.neb, 1 VIAL NEB Q6HRS, #150 ML 08/14/16 Discontinued Reported Medications Atorvastatin Calcium (ATORVASTATIN CALCIUM) 10 Mg Tablet, 10 MG PO HS for FOR CHOLESTEROL, #30 TAB 0 Refills 11/29/18 Levetiracetam (KEPPRA) 100 Mg/1 Ml Solution, 200 MG PEG BID for seizures, ML 11/29/18 Sucralfate (CARAFATE) 1 Gm/10 Ml Oral.susp, 1 GM PO BID for reflux, MISC 11/29/18 Acetaminophen (ACETAMINOPHEN) 500 Mg/5 Ml Liquid, 500 MG PO PRN Q6HRS PRN for PAIN, LIQUID 08/14/16 GABRIEL YOST MD May 23, 2019 13:31
--- NOTE | 2019-05-23 14:43 | NUR ---
SS following up with discharge planning. Discharge orders received for [facility] in [place]. SS phoned and faxed discharge orders to [facility] in [place]. Pt will discharge today and go to [facility] in [place] at 1530. [facility] providing stretcher transport. Pt, pt's RN, and pt's family notified.
[2019-05-23 15:00] VITALS: BP 174/150
--- NOTE | 2019-05-23 16:09 | NUR ---
Discharge Note: JD MUNROE Discharge instructions and discharge home medications reviewed with Other facility and a copy given. All questions have been answered and understanding verbalized. The following instructions and handouts were given: Seizures Patient discharged to [facility] facility with transport via stretcher
== END 2019-05-23 16:11 | disposition home or self-care (01) | DRG 291 ==
LOC: 2 NORTH 20:13
PROVIDERS: ADMIT Internal Medicine; ATTEND Internal Medicine
PROC: 02HV33Z Insertion of Infusion Device into Superior Vena Cava, Percutaneous Approach (ICD-10-PCS; principal; 2019-05-20)
PROC: B548ZZA Ultrasonography of Superior Vena Cava, Guidance (ICD-10-PCS; 2019-05-20)
DX: I13.0 Hypertensive heart and chronic kidney disease with heart failure and stage 1 through stage 4 chronic kidney disease, or unspecified chronic kidney disease (principal); J96.01 Acute respiratory failure with hypoxia; G82.50 Quadriplegia, unspecified; I50.43 Acute on chronic combined systolic (congestive) and diastolic (congestive) heart failure; N17.9 Acute kidney failure, unspecified; F01.51 Vascular dementia, unspecified severity, with behavioral disturbance; G40.919 Epilepsy, unspecified, intractable, without status epilepticus; I69.351 Hemiplegia and hemiparesis following cerebral infarction affecting right dominant side; J98.11 Atelectasis; D63.1 Anemia in chronic kidney disease; D86.9 Sarcoidosis, unspecified; E11.22 Type 2 diabetes mellitus with diabetic chronic kidney disease; E78.5 Hyperlipidemia, unspecified; I45.9 Conduction disorder, unspecified; I48.0 Paroxysmal atrial fibrillation; I49.5 Sick sinus syndrome; I69.320 Aphasia following cerebral infarction; K21.9 Gastro-esophageal reflux disease without esophagitis; M54.5 Low back pain; J44.9 Chronic obstructive pulmonary disease, unspecified; M06.9 Rheumatoid arthritis, unspecified; M81.0 Age-related osteoporosis without current pathological fracture; N40.0 Benign prostatic hyperplasia without lower urinary tract symptoms; Z87.441 Personal history of nephrotic syndrome; Z99.3 Dependence on wheelchair; N18.9 Chronic kidney disease, unspecified; G89.29 Other chronic pain; M10.9 Gout, unspecified; Z87.440 Personal history of urinary (tract) infections; Z88.8 Allergy status to other drugs, medicaments and biological substances
CPT/HCPCS: 36415; 36556; 71045; 71275; 76937; 80048; 80053; 80061; 83880; 84484; 85007; 85025; 85027; 87641; 93005; 93306; 94640; 94760; C1892; J0360; J1650; J1940; J7613; J8597; Q9967